=== PATIENT | female | born 1930 | race Caucasian/White ===

== ENCOUNTER 2019-04-06 04:55 | Observation (INO) ==
[2019-04-06] MEDS ORDERED: XYLOCAINE 1 % (PLAIN) ONE (06:00)
[2019-04-06] MEDS ORDERED: BACITRACIN ZINC ONE (07:15)
[2019-04-06] MEDS ORDERED: ZOFRAN INJ 4 MG VIAL ONE (07:15)
[2019-04-06] MEDS ORDERED: MORPHINE SULFATE INJ 2 MG INJ ONE (07:15)
[2019-04-06] MEDS ORDERED: MORPHINE SULFATE INJ 2 MG INJ IVP ONE ×2 (10:00→16:30)
[2019-04-06] MEDS ORDERED: TORADOL 15 MG VIAL IVP ONE (13:00)
[2019-04-06] MEDS ORDERED: COZAAR PO ONE (16:30)
[2019-04-06] MEDS ORDERED: DETROL LA 4 MG CAP EXT REL PO ONE (16:30)
[2019-04-06] MEDS ORDERED: PROTONIX TAB 40 MG PO ONE (16:30)
[2019-04-06] MEDS ORDERED: ARICEPT TAB 5 MG PO ONE (16:30)
[2019-04-06] MEDS ORDERED: LEVAQUIN PREMIX IV 500 MG IV ONE (16:30)
[2019-04-06] MEDS ORDERED: ATIVAN TAB 1 MG PO ONE (21:00)
[2019-04-06] MEDS ORDERED: ZOSYN VIAL 3.375 GRAMS IV ONE (21:30)
[2019-04-06] MEDS ORDERED: NS 100 ML IV + SPIKE MINIBAG IV ONE (21:30)
[2019-04-06] MEDS ORDERED: REGLAN TAB 10 MG PO ONE (22:00)
[2019-04-06] MEDS ORDERED: ZANTAC PO ONE (22:00)
[2019-04-06] MEDS ORDERED: LOPRESSOR TAB 50 MG PO ONE (22:00)
[2019-04-07] MEDS ORDERED: CARAFATE ORAL SUSP PO ONE ×2 (05:26→23:20)
[2019-04-07] MEDS ORDERED: TORADOL 15 MG VIAL IVP ONE (06:00)
[2019-04-07] MEDS ORDERED: FLONASE NASAL SPRAY ENOSTRIL ONE (09:40)
[2019-04-07] MEDS ORDERED: ARICEPT TAB 5 MG PO ONE (09:40)
[2019-04-07] MEDS ORDERED: ZANTAC PO ONE ×2 (09:40→23:18)
[2019-04-07] MEDS ORDERED: LOPRESSOR TAB 50 MG PO ONE ×2 (09:40→23:18)
[2019-04-07] MEDS ORDERED: ZOSYN VIAL 3.375 GRAMS IV ONE ×2 (09:40→23:18)
[2019-04-07] MEDS ORDERED: ELIQUIS PO ONE (09:40)
[2019-04-07] MEDS ORDERED: COZAAR PO ONE (09:40)
[2019-04-07] MEDS ORDERED: REGLAN TAB 10 MG PO ONE ×2 (09:40→23:18)
[2019-04-07] MEDS ORDERED: NS 1000 ML IV ONE (23:18)
[2019-04-07] MEDS ORDERED: ZINC SULFATE PO ONE (23:18)
[2019-04-07] MEDS ORDERED: PROTONIX TAB 40 MG PO ONE (23:18)
[2019-04-07] MEDS ORDERED: ATIVAN TAB 1 MG PO ONE (23:18)
[2019-04-07] MEDS ORDERED: FLOMAX PO ONE (23:18)
[2019-04-07] MEDS ORDERED: DETROL LA 4 MG CAP EXT REL PO ONE (23:18)
[2019-04-07] MEDS ORDERED: MORPHINE SULFATE INJ 2 MG INJ IVP ONE (23:28)
[2019-04-08] MEDS ORDERED: MORPHINE SULFATE INJ 2 MG INJ IVP PRN ×2 (05:51→06:16)
[2019-04-08] MEDS ORDERED: TORADOL 15 MG VIAL IVP PRN (06:15)
[2019-04-08] MEDS ORDERED: ATIVAN TAB 1 MG PO PRN (06:17)
[2019-04-08] MEDS ORDERED: CARAFATE ORAL SUSP PO PRN (06:18)
[2019-04-08] MEDS ORDERED: NS 1000 ML 1,000 ML IV SCH (07:00)
[2019-04-08] MEDS ORDERED: FLONASE NASAL SPRAY ENOSTRIL SCH (09:00)
[2019-04-08 09:37] LABS: CKMB % 1.6 % (<4)
[2019-04-08 09:39] LABS: CREATINE KINASE MB 5.6 ng/mL (0-4.0); TROPONIN I 0.07 ng/mL (0-1.5)
[2019-04-08 09:41] LABS: CARBON DIOXIDE 28.8 mmol/L (21-32); CHLORIDE 101 mmol/L (98-107); SODIUM 137 mmol/L (136-145)
[2019-04-08 09:42] LABS: ALANINE AMINOTRANSFERASE 17 Units/L (12-78); ALBUMIN 3.5 g/dL (3.4-5.0); ALKALINE PHOSPHATASE 66 Units/L (46-116); ASPARTATE AMINO TRANSFERASE 22 Units/L (15-37); BLOOD UREA NITROGEN 25 mg/dL (7-18); CALCIUM 8.6 mg/dL (8.5-10.1); COR NA(FOR HYPERGLY) 138 mmol/L (136-145); CREATINE KINASE 231 Units/L (26-192); CREATININE 1.46 mg/dL (0.55-1.02); TOTAL PROTEIN 6.2 g/dL (6.4-8.2); eGFR NON BLACK RACES 36 (>60)
[2019-04-08 09:43] LABS: CREATINE KINASE MB 4.7 ng/mL (0-4.0)
[2019-04-08 09:44] LABS: TROPONIN I 0.07 ng/mL (0-1.5)
[2019-04-08 09:46] LABS: BASOPHILS % (AUTO) 0.3 % (0.2-1.0); EOSINOPHILS % (AUTO) 2.3 % (0.9-2.9); HEMATOCRIT 36.8 % (36.0-47.0); HEMOGLOBIN 12.8 g/dL (12.0-16.0); LYMPHOCYTES # (AUTO) 1.3 X10^3/uL (1.3-2.9); LYMPHOCYTES % (AUTO) 12.4 % (21.0-51.0); MEAN CORPUSCULAR HEMOGLOBIN 31.1 pg (27.0-34.0); MEAN CORPUSCULAR HGB CONC 34.7 g/dL (33.0-35.0); MEAN CORPUSCULAR VOLUME 89.7 fL (80.0-100.0); MONOCYTES # (AUTO) 0.8 x10^3/uL (0.3-0.8); MONOCYTES % (AUTO) 7.7 % (0.0-13.0); NEUTROPHILS % (AUTO) 77.3 % (42.0-75.0); PLATELET COUNT 138 X10^3/uL (150.0-450.0); RED BLOOD COUNT 4.11 X10^6/uL (3.5-5.4); RED CELL DISTRIBUTION WIDTH 13.6 % (11.6-16.5); WHITE BLOOD COUNT 10.3 X10^3/uL (3.6-10.0)
[2019-04-08 09:47] LABS: EOSINOPHILS # (AUTO) 0.2 x10^3/uL (0.0-0.2)
[2019-04-08 09:51] LABS: ASPARTATE AMINO TRANSFERASE 22 Units/L (15-37); BLOOD UREA NITROGEN 22 mg/dL (7-18); CALCIUM 8.1 mg/dL (8.5-10.1); CARBON DIOXIDE 30.4 mmol/L (21-32); CHLORIDE 100 mmol/L (98-107); CREATININE 1.49 mg/dL (0.55-1.02); SODIUM 135 mmol/L (136-145); eGFR NON BLACK RACES 35 (>60)
[2019-04-08 09:52] LABS: ALANINE AMINOTRANSFERASE 13 Units/L (12-78); ALBUMIN 2.9 g/dL (3.4-5.0); ALKALINE PHOSPHATASE 54 Units/L (46-116); TOTAL PROTEIN 5.6 g/dL (6.4-8.2)
[2019-04-08 09:53] LABS: BASOPHILS % (AUTO) 0.6 % (0.2-1.0); EOSINOPHILS # (AUTO) 0.3 x10^3/uL (0.0-0.2); EOSINOPHILS % (AUTO) 3.8 % (0.9-2.9); HEMATOCRIT 31.9 % (36.0-47.0); LYMPHOCYTES # (AUTO) 1.5 X10^3/uL (1.3-2.9); LYMPHOCYTES % (AUTO) 20.4 % (21.0-51.0); MEAN CORPUSCULAR HEMOGLOBIN 31.1 pg (27.0-34.0); MEAN CORPUSCULAR HGB CONC 34.4 g/dL (33.0-35.0); MEAN CORPUSCULAR VOLUME 90.4 fL (80.0-100.0); MEAN PLATELET VOLUME 9.1 fL (7.4-11.0); MONOCYTES # (AUTO) 0.8 x10^3/uL (0.3-0.8); MONOCYTES % (AUTO) 11.2 % (0.0-13.0); NEUTROPHILS # (AUTO) 4.7 x10^3/uL (2.2-4.8); PLATELET COUNT 120 X10^3/uL (150.0-450.0); RED BLOOD COUNT 3.53 X10^6/uL (3.5-5.4); RED CELL DISTRIBUTION WIDTH 13.4 % (11.6-16.5); WHITE BLOOD COUNT 7.4 X10^3/uL (3.6-10.0)
[2019-04-08 10:07] LABS: CKMB % 1.5 % (<4); CREATINE KINASE MB 5.6 ng/mL (0-4.0); TROPONIN I 0.06 ng/mL (0-1.5)
[2019-04-08 10:09] LABS: CKMB % 1.2 % (<4); CREATINE KINASE MB 3.9 ng/mL (0-4.0); TROPONIN I 0.06 ng/mL (0-1.5)
[2019-04-08 10:09] LABS: CKMB % 1.2 % (<4); CREATINE KINASE MB 4.2 ng/mL (0-4.0)
[2019-04-08 12:36] LABS: TROPONIN I 0.05 ng/mL (0-1.5)
[2019-04-08] MEDS: REGLAN TAB 10 MG PO SCH ×2 (14:01→16:48)
[2019-04-08] MEDS: NS 1000 ML 1,000 ML IV SCH ×2 (14:01→21:36)
[2019-04-08] MEDS: PROTONIX TAB 40 MG PO SCH (14:01)
[2019-04-08] MEDS: ZOSYN VIAL 3.375 GRAMS 3.375 G in NS 100 ML IV + SPIKE MINIBAG* 100 ML IV SCH ×2 (14:01→21:35)
[2019-04-08] MEDS: ZINC SULFATE PO SCH (14:02)
[2019-04-08] MEDS: ZANTAC PO SCH ×2 (14:02→21:28)
[2019-04-08] MEDS: ELIQUIS PO SCH (14:02)
[2019-04-08] MEDS: ARICEPT TAB 5 MG PO SCH (14:02)
[2019-04-08] MEDS: TobraDEX OPHTH OINT AFFEYE SCH ×2 (14:02→21:49)
[2019-04-08] MEDS: DETROL LA 4 MG CAP EXT REL PO SCH (14:02)
[2019-04-08] MEDS: COZAAR PO SCH (14:02)
[2019-04-08] MEDS: LOPRESSOR TAB 50 MG PO SCH ×2 (14:02→21:29)
[2019-04-08] MEDS: LEVAQUIN PREMIX IV 500 MG 500 MG/100 ML BAG IV SCH (14:03)
[2019-04-08] MEDS ORDERED: MILK OF MAGNESIA PO PRN (14:16)
[2019-04-08] MEDS ORDERED: COLACE CAP 100 MG PO PRN (14:16)
[2019-04-08 17:26] LABS: BILIRUBIN,URINE NEGATIVE (NEGATIVE); BLOOD/HEMOGLOBIN,URINE NEGATIVE (NEGATIVE); GLUCOSE, URINE NEGATIVE (NEGATIVE); KETONES,URINE NEGATIVE (NEGATIVE); LEUKOCYTE ESTERASE ,URINE 1+ (NEGATIVE); NITRITES,URINE NEGATIVE (NEGATIVE); PROTEIN,URINE 1+ (NEGATIVE); UROBILINOGEN,URINE NORMAL (NORMAL)
[2019-04-08 17:29] LABS: APPEARANCE,URINE CLEAR (CLEAR); COLOR,URINE YELLOW (YELLOW)
[2019-04-08 17:46] LABS: BACTERIA,URINE NEGATIVE /HPF (NEGATIVE); RBC,URINE NONE SEEN /HPF (NONE SEEN); SQUAMOUS EPITHELIAL CELL,UR MODERATE /HPF (NEGATIVE)
[2019-04-08 17:47] LABS: AMORPHOUS SEDIMENT,UR TRACE /HPF (NEGATIVE)
[2019-04-08] MEDS ORDERED: DULCOLAX SUPPOSITORY 10 MG RECTAL ONE (20:07)
[2019-04-08] MEDS ORDERED: FLOMAX PO SCH (21:00)
[2019-04-08] MEDS ORDERED: ATIVAN TAB 1 MG PO SCH (21:00)
[2019-04-08] MEDS: COLACE CAP 100 MG PO SCH (21:27)
[2019-04-08] MEDS: MILK OF MAGNESIA PO SCH (21:29)
--- NOTE | 2019-04-09 00:19 | PCM.PROG ---
Progress Note - Progress Note for Day of Date of Exam: 04/07/19 - Subjective Subjective: the patient is an 88-year-old white female who was admitted secondary to a fall. Patient subsequently has bilateral nasal bone fractures. Patient has significant ecchymosis to her face. patient does state she can breath through her nose. Patient does complain of left shoulder pain. Patient denieyncopal episode. Does state that she tripped and fell. Does have safety alert necklace and bracelet at home. - Past Medical Family Social History Past Med/Fam/Surg Hx: No changes since H&P Allergies: Allergies aspirin Allergy (Verified 04/08/19 05:49) Sulfa (Sulfonamide Antibiotics) Allergy (Verified 04/08/19 05:50) - Review of Systems ROS: No change since H&P - Vital Signs and I&O's Vital Signs: Temperature 97.7 F Pulse Rate [Right] 66 Respiratory Rate 18 Blood Pressure [Right Arm] 136/79 Blood Pressure 106/59 O2 Sat by Pulse Oximetry 99 Intake and Output: Intake & Output 04/06/19 04/07/19 04/08/19 04/09/19 23:59 23:59 23:59 23:59 Intake Total 960 / 960 Output Total 300 / 300 Balance 660 / 660 - Physical Exam Oriented: Normal Eyes: Other Ear: Normal Nose: Other (edematous with laceration to bridge of nose. Sutures intact.) Throat: Normal Respiratory: Normal Cardiovascular: Normal : Normal Auscultation: Bowel Sounds: Normal Palpation: Normal Tenderness: Normal Skin: Wound (Nasal bridge), Bruising (Face) Musculoskeletal: Left, Shoulder, Tender Psychiatric: Normal Mood Description: Calm Affect: Normal Speech Pattern: Clear, Appropriate - Laboratory and Diagnostics Result Diagrams: 04/07/19 05:20 04/07/19 05:20 Labs: Laboratory WBC 7.4 X10^3/uL (3.6-10.0) 04/07/19 05:20 RBC 3.53 X10^6/uL (3.5-5.4) 04/07/19 05:20 Hgb 11.0 g/dL (12.0-16.0) L 04/07/19 05:20 Hct 31.9 % (36.0-47.0) L 04/07/19 05:20 MCV 90.4 fL (80.0-100.0) 04/07/19 05:20 MCH 31.1 pg (27.0-34.0) 04/07/19 05:20 MCHC 34.4 g/dL (33.0-35.0) 04/07/19 05:20 RDW 13.4 % (11.6-16.5) 04/07/19 05:20 Plt Count 120 X10^3/uL (150.0-450.0) L 04/07/19 05:20 MPV 9.1 fL (7.4-11.0) 04/07/19 05:20 Neut % (Auto) 64.0 % (42.0-75.0) 04/07/19 05:20 Lymph % (Auto) 20.4 % (21.0-51.0) L 04/07/19 05:20 [place] % (Auto) 11.2 % (0.0-13.0) 04/07/19 05:20 Eos % (Auto) 3.8 % (0.9-2.9) H 04/07/19 05:20 Baso % (Auto) 0.6 % (0.2-1.0) 04/07/19 05:20 Neut # (Auto) 4.7 x10^3/uL (2.2-4.8) 04/07/19 05:20 Lymph # (Auto) 1.5 X10^3/uL (1.3-2.9) 04/07/19 05:20 [place] # (Auto) 0.8 x10^3/uL (0.3-0.8) 04/07/19 05:20 Eos # (Auto) 0.3 x10^3/uL (0.0-0.2) H 04/07/19 05:20 Baso # (Auto) 0.0 X10^3/uL (0.0-0.1) 04/07/19 05:20 Absolute Nucleated RBC 0.0 /100WBC 04/07/19 05:20 INR Target Range - 04/06/19 05:30 INR 1.56 (0.8-1.3) H 04/06/19 05:30 APTT 34.9 SECONDS (22.9-36.5) 04/06/19 05:30 PTT Comment - 04/06/19 05:30 Sodium 135 mmol/L (136-145) L 04/07/19 05:20 Corrected Sodium TNP 04/07/19 05:20 Potassium 4.4 mmol/L (3.5-5.1) 04/07/19 05:20 Chloride 100 mmol/L (98-107) 04/07/19 05:20 Carbon Dioxide 30.4 mmol/L (21-32) 04/07/19 05:20 BUN 22 mg/dL (7-18) H 04/07/19 05:20 Creatinine 1.49 mg/dL (0.55-1.02) H 04/07/19 05:20 Est GFR (MDRD) Af Amer 43 (>60) L 04/07/19 05:20 Est GFR (MDRD) Non-Af 35 (>60) L 04/07/19 05:20 Glucose 97 mg/dL (65-99) 04/07/19 05:20 Calcium 8.1 mg/dL (8.5-10.1) L 04/07/19 05:20 Corrected Calcium 9.0 mg/dL (8.5-10.1) 04/07/19 05:20 Total Bilirubin 0.60 mg/dL (0.2-1.0) 04/07/19 05:20 AST 22 Units/L (15-37) 04/07/19 05:20 ALT 13 Units/L (12-78) 04/07/19 05:20 Alkaline Phosphatase 54 Units/L (46-116) 04/07/19 05:20 Creatine Kinase 329 Units/L (26-192) H 04/07/19 00:00 CK-MB (CK-2) 3.9 ng/mL (0-4.0) 04/07/19 00:00 CK/CKMB % Calc 1.2 % (<4) 04/07/19 00:00 Troponin I 0.06 ng/mL (0-1.5) 04/07/19 00:00 Total Protein 5.6 g/dL (6.4-8.2) L 04/07/19 05:20 Albumin 2.9 g/dL (3.4-5.0) L 04/07/19 05:20 Globulin 2.7 g/dL (2.5-4.5) 04/07/19 05:20 Albumin/Globulin Ratio 1.1 Ratio (1.1-2.1) 04/07/19 05:20 Specimen Type Clean catch urine 04/08/19 16:35 Urine Color Yellow (YELLOW) 04/08/19 16:35 Urine Appearance Clear (CLEAR) 04/08/19 16:35 Urine pH 6.0 (5.0 - 8.0) 04/08/19 16:35 Ur Specific [place] 1.015 (1.000-1.030) 04/08/19 16:35 Urine Protein 1+ (NEGATIVE) 04/08/19 16:35 Urine Glucose (UA) Negative (NEGATIVE) 04/08/19 16:35 Urine Ketones Negative (NEGATIVE) 04/08/19 16:35 Urine Occult Blood Negative (NEGATIVE) 04/08/19 16:35 Urine Nitrite Negative (NEGATIVE) 04/08/19 16:35 Urine Bilirubin Negative (NEGATIVE) 04/08/19 16:35 Urine Urobilinogen Normal (NORMAL) 04/08/19 16:35 Ur Leukocyte Esterase 1+ (NEGATIVE) 04/08/19 16:35 Urine RBC None seen /HPF (NONE SEEN) 04/08/19 16:35 Urine WBC 3-5 /HPF (NONE SEEN) 04/08/19 16:35 Ur Squamous Epith Cells Moderate /HPF (NEGATIVE) 04/08/19 16:35 Amorphous Sediment Trace /HPF (NEGATIVE) 04/08/19 16:35 Urine Bacteria Negative /HPF (NEGATIVE) 04/08/19 16:35 Ur Culture Indicated? No/not indicated 04/08/19 16:35 - Plan (1) Nasal bone fx-closed Status: Acute Plan: Monitor breathing. Humidify O2 as needed. (2) Fall Status: Acute Plan: Up with assistance (3) Current use of anticoagulant therapy Status: Acute Plan: Hold
--- NOTE | 2019-04-09 00:23 | PCM.PROG ---
Progress Note - Progress Note for Day of Date of Exam: 04/08/19 - Subjective Subjective: the patient is an 88-year-old white female who was admitted secondary to a fall. Patient subsequently has bilateral nasal bone fractures. Patient has significant ecchymosis to her face. patient does state she can breath through her nose. Patient does complain of left upper/mid humeral pain. Patient denies syncopal episode. Does state that she tripped and fell. Does have safety alert necklace and bracelet at home. patient complains of weakness. - Past Medical Family Social History Past Med/Fam/Surg Hx: No changes since H&P Allergies: Allergies aspirin Allergy (Verified 04/08/19 05:49) Sulfa (Sulfonamide Antibiotics) Allergy (Verified 04/08/19 05:50) - Review of Systems ROS: No change since H&P - Vital Signs and I&O's Vital Signs: Temperature 97.7 F Pulse Rate [Right] 66 Respiratory Rate 18 Blood Pressure [Right Arm] 136/79 Blood Pressure 106/59 O2 Sat by Pulse Oximetry 99 Intake and Output: Intake & Output 04/06/19 04/07/19 04/08/19 04/09/19 23:59 23:59 23:59 23:59 Intake Total 960 / 960 Output Total 300 / 300 Balance 660 / 660 - Physical Exam Oriented: Normal Eyes: Other Ear: Normal Nose: Other (edematous with laceration to bridge of nose. Sutures intact.) Throat: Normal Respiratory: Normal Cardiovascular: Normal : Normal Auscultation: Bowel Sounds: Normal Tenderness: Normal Skin: Wound (Nasal bridge), Bruising (Face) Musculoskeletal: Left, Shoulder, Tender Psychiatric: Normal Mood Description: Calm Affect: Normal Speech Pattern: Clear, Appropriate - Laboratory and Diagnostics Result Diagrams: 04/07/19 05:20 04/07/19 05:20 Labs: Laboratory WBC 7.4 X10^3/uL (3.6-10.0) 04/07/19 05:20 RBC 3.53 X10^6/uL (3.5-5.4) 04/07/19 05:20 Hgb 11.0 g/dL (12.0-16.0) L 04/07/19 05:20 Hct 31.9 % (36.0-47.0) L 04/07/19 05:20 MCV 90.4 fL (80.0-100.0) 04/07/19 05:20 MCH 31.1 pg (27.0-34.0) 04/07/19 05:20 MCHC 34.4 g/dL (33.0-35.0) 04/07/19 05:20 RDW 13.4 % (11.6-16.5) 04/07/19 05:20 Plt Count 120 X10^3/uL (150.0-450.0) L 04/07/19 05:20 MPV 9.1 fL (7.4-11.0) 04/07/19 05:20 Neut % (Auto) 64.0 % (42.0-75.0) 04/07/19 05:20 Lymph % (Auto) 20.4 % (21.0-51.0) L 04/07/19 05:20 [place] % (Auto) 11.2 % (0.0-13.0) 04/07/19 05:20 Eos % (Auto) 3.8 % (0.9-2.9) H 04/07/19 05:20 Baso % (Auto) 0.6 % (0.2-1.0) 04/07/19 05:20 Neut # (Auto) 4.7 x10^3/uL (2.2-4.8) 04/07/19 05:20 Lymph # (Auto) 1.5 X10^3/uL (1.3-2.9) 04/07/19 05:20 [place] # (Auto) 0.8 x10^3/uL (0.3-0.8) 04/07/19 05:20 Eos # (Auto) 0.3 x10^3/uL (0.0-0.2) H 04/07/19 05:20 Baso # (Auto) 0.0 X10^3/uL (0.0-0.1) 04/07/19 05:20 Absolute Nucleated RBC 0.0 /100WBC 04/07/19 05:20 INR Target Range - 04/06/19 05:30 INR 1.56 (0.8-1.3) H 04/06/19 05:30 APTT 34.9 SECONDS (22.9-36.5) 04/06/19 05:30 PTT Comment - 04/06/19 05:30 Sodium 135 mmol/L (136-145) L 04/07/19 05:20 Corrected Sodium TNP 04/07/19 05:20 Potassium 4.4 mmol/L (3.5-5.1) 04/07/19 05:20 Chloride 100 mmol/L (98-107) 04/07/19 05:20 Carbon Dioxide 30.4 mmol/L (21-32) 04/07/19 05:20 BUN 22 mg/dL (7-18) H 04/07/19 05:20 Creatinine 1.49 mg/dL (0.55-1.02) H 04/07/19 05:20 Est GFR (MDRD) Af Amer 43 (>60) L 04/07/19 05:20 Est GFR (MDRD) Non-Af 35 (>60) L 04/07/19 05:20 Glucose 97 mg/dL (65-99) 04/07/19 05:20 Calcium 8.1 mg/dL (8.5-10.1) L 04/07/19 05:20 Corrected Calcium 9.0 mg/dL (8.5-10.1) 04/07/19 05:20 Total Bilirubin 0.60 mg/dL (0.2-1.0) 04/07/19 05:20 AST 22 Units/L (15-37) 04/07/19 05:20 ALT 13 Units/L (12-78) 04/07/19 05:20 Alkaline Phosphatase 54 Units/L (46-116) 04/07/19 05:20 Creatine Kinase 329 Units/L (26-192) H 04/07/19 00:00 CK-MB (CK-2) 3.9 ng/mL (0-4.0) 04/07/19 00:00 CK/CKMB % Calc 1.2 % (<4) 04/07/19 00:00 Troponin I 0.06 ng/mL (0-1.5) 04/07/19 00:00 Total Protein 5.6 g/dL (6.4-8.2) L 04/07/19 05:20 Albumin 2.9 g/dL (3.4-5.0) L 04/07/19 05:20 Globulin 2.7 g/dL (2.5-4.5) 04/07/19 05:20 Albumin/Globulin Ratio 1.1 Ratio (1.1-2.1) 04/07/19 05:20 Specimen Type Clean catch urine 04/08/19 16:35 Urine Color Yellow (YELLOW) 04/08/19 16:35 Urine Appearance Clear (CLEAR) 04/08/19 16:35 Urine pH 6.0 (5.0 - 8.0) 04/08/19 16:35 Ur Specific [place] 1.015 (1.000-1.030) 04/08/19 16:35 Urine Protein 1+ (NEGATIVE) 04/08/19 16:35 Urine Glucose (UA) Negative (NEGATIVE) 04/08/19 16:35 Urine Ketones Negative (NEGATIVE) 04/08/19 16:35 Urine Occult Blood Negative (NEGATIVE) 04/08/19 16:35 Urine Nitrite Negative (NEGATIVE) 04/08/19 16:35 Urine Bilirubin Negative (NEGATIVE) 04/08/19 16:35 Urine Urobilinogen Normal (NORMAL) 04/08/19 16:35 Ur Leukocyte Esterase 1+ (NEGATIVE) 04/08/19 16:35 Urine RBC None seen /HPF (NONE SEEN) 04/08/19 16:35 Urine WBC 3-5 /HPF (NONE SEEN) 04/08/19 16:35 Ur Squamous Epith Cells Moderate /HPF (NEGATIVE) 04/08/19 16:35 Amorphous Sediment Trace /HPF (NEGATIVE) 04/08/19 16:35 Urine Bacteria Negative /HPF (NEGATIVE) 04/08/19 16:35 Ur Culture Indicated? No/not indicated 04/08/19 16:35 - Plan (1) Nasal bone fx-closed Status: Acute Plan: Monitor breathing. Humidify O2 as needed. (2) Fall Status: Acute Plan: Up with assistance, Home health nurses with PT (3) Current use of anticoagulant therapy Status: Acute Plan: Hold
[2019-04-09 05:18] LABS: BASOPHILS % (AUTO) 0.5 % (0.2-1.0); EOSINOPHILS # (AUTO) 0.3 x10^3/uL (0.0-0.2); EOSINOPHILS % (AUTO) 3.9 % (0.9-2.9); HEMATOCRIT 32.2 % (36.0-47.0); HEMOGLOBIN 11.3 g/dL (12.0-16.0); LYMPHOCYTES # (AUTO) 1.4 X10^3/uL (1.3-2.9); MEAN CORPUSCULAR HEMOGLOBIN 31.3 pg (27.0-34.0); MEAN CORPUSCULAR VOLUME 89.5 fL (80.0-100.0); MEAN PLATELET VOLUME 9.5 fL (7.4-11.0); MONOCYTES # (AUTO) 0.8 x10^3/uL (0.3-0.8); MONOCYTES % (AUTO) 9.3 % (0.0-13.0); NEUTROPHILS % (AUTO) 70.3 % (42.0-75.0); PLATELET COUNT 127 X10^3/uL (150.0-450.0); RED CELL DISTRIBUTION WIDTH 13.7 % (11.6-16.5); WHITE BLOOD COUNT 8.5 X10^3/uL (3.6-10.0)
[2019-04-09 05:26] LABS: CALCIUM 8.3 mg/dL (8.5-10.1); COR CA(FOR HYPOALB) 9.1 mg/dL (8.5-10.1); CREATININE 1.43 mg/dL (0.55-1.02); TOTAL PROTEIN 5.8 g/dL (6.4-8.2)
[2019-04-09] MEDS: REGLAN TAB 10 MG PO SCH (06:18)
[2019-04-09] MEDS: LEVAQUIN PREMIX IV 500 MG 500 MG/100 ML BAG IV SCH (09:30)
[2019-04-09] MEDS: COLACE CAP 100 MG PO SCH (09:32)
[2019-04-09] MEDS: ARICEPT TAB 5 MG PO SCH (09:33)
[2019-04-09] MEDS: DETROL LA 4 MG CAP EXT REL PO SCH (09:33)
[2019-04-09] MEDS: PROTONIX TAB 40 MG PO SCH (09:34)
[2019-04-09] MEDS: ZINC SULFATE PO SCH (09:34)
[2019-04-09] MEDS: ZANTAC PO SCH (09:35)
[2019-04-09] MEDS: LOPRESSOR TAB 50 MG PO SCH (09:36)
[2019-04-09] MEDS: COZAAR PO SCH (09:36)
[2019-04-09] MEDS: TobraDEX OPHTH OINT AFFEYE SCH (09:37)
[2019-04-09] MEDS: ELIQUIS PO SCH (09:37)
[2019-04-09] MEDS: MILK OF MAGNESIA PO SCH (09:37)
[2019-04-09] MEDS: ZOSYN VIAL 3.375 GRAMS 3.375 G in NS 100 ML IV + SPIKE MINIBAG* 100 ML IV SCH (10:50)
[2019-04-09 12:06] VITALS: BP 120/50
== END 2019-04-09 13:00 | disposition home health service (06) ==
LOC: ER 04:55 → MED/SURG 04:55
PROVIDERS: ADMIT Internal Medicine; ATTEND Internal Medicine
DX: R06.2 Wheezing; S02.2XXA Fracture of nasal bones, initial encounter for closed fracture; Z96.653 Presence of artificial knee joint, bilateral; S01.21XA Laceration without foreign body of nose, initial encounter; I48.91 Unspecified atrial fibrillation; S80.00XA Contusion of unspecified knee, initial encounter; W18.39XA Other fall on same level, initial encounter; R60.0 Localized edema; R94.31 Abnormal electrocardiogram [ECG] [EKG]; S09.8XXA Other specified injuries of head, initial encounter; Z79.01 Long term (current) use of anticoagulants; R53.1 Weakness; S61.215A Laceration without foreign body of left ring finger without damage to nail, initial encounter; Y92.091 Bathroom in other non-institutional residence as the place of occurrence of the external cause; S10.93XA Contusion of unspecified part of neck, initial encounter; S40.019A Contusion of unspecified shoulder, initial encounter
CPT/HCPCS: 36415; 70450; 70486; 71010; 71045; 72125; 73030; 73560; 80053; 81001; 82550; 82553; 84484; 85025; 85610; 85730; 93005; 94760; 96365; 96367; 96374; 96375; 97110; 97116; 97162; 97167; 97535; 99284; A4222; G0378; J1885; J1956; J2270; J2405; J2543; J7030; J7050

== ENCOUNTER 2020-05-10 11:24 | Observation (INO) ==
--- NOTE | 2020-05-10 11:39 | DR.GENAD ---
HPI Time Seen Time Seen by Provider: 05/10/20 11:37 HPI Comment HPI Comment: PATIENT IS OLD FEMALE IN ER VIA EMS FOR INCREASING WEAKNESS AND DIZZINESS NOTED TODAY. HISTORY OF VERTIGO. PATIENT HAVE IMBALANCE AND ATAXIA AND KNEES GIVE WAY WHEN SHE TRY TO GET UP. DENIES TRAUMA. DENIES CHEST PAIN OR HE ADACHE. HISTORY A FIB BUT DENIES PALPITATION. NO FEVER OR DYSURIA. NAUSEATED BUT NO VOMITING. PATIENT HAVING MELENA STOOL. Complaint/Symptoms Chief Complaint Doctors Comments: GENERALIZED WEAKNESS AND DIZZINESS NOTED TODAY. COVID-19 Coronavirus risk:travel/contact w/high risk person: No Has patient experienced Coronavirus symptoms: No Nurses notes reviewed Nurses Notes Review: Yes Source History Provided: Parent Mode of Arrival Mode of Arrival: EMS Timing Came on: Suddenly Duration Duration: Constant Duration: Hours Severity Severity: Moderate Modifying Factors Worsens:: MOVEMENT. Improves:: LYING STILL. Associated Signs and Symptoms Associated Signs and Symptoms: WEAKNESS, ATAXIA. Other History Other History: VERTIGO. PMH PMH Past Medical History: Anxiety, Arthritis, GERD and Hypertension Past Surgical History: Yes Surgical History: Other Social History Do you use any recreational Drugs:: No Travel Risk Coronavirus risk:travel/contact w/high risk person: No Has patient experienced Coronavirus symptoms: No ROS Review of Systems Constitutional: See HPI, Weakness and Fatigue; negative Fever and Loss of Appetite Eyes: No Symptoms Reported and See HPI; negative Blurred Vision and Diplopia ENTM: No Symptoms Reported and See HPI; negative Ear Pain, Nose Discharge, Nose Congestion and Throat Pain Respiratoy: See HPI, Productive Cough and Short of Breath (ON EXERTION.); negative Wheezing Cardiovascular: No Symptoms Reported and See HPI; negative Chest Pain Gastrointestinal/Abdominal: See HPI, Nausea and Other (MELENA STOOL.); negative Abdominal Pain, Diarrhea and Vomiting Genitourinary: See HPI and Bleeding (MELENA STOOL.); negative Dysuria and Hematuria Neurological: See HPI, Headache, Weakness and Dizziness Musculoskeletal: No Symptoms Reported, See HPI, Back Pain and Muscle Pain Integumentary: No Symptoms Reported and See HPI; negative Change in Color, Rash and Juandice Hematologic/Lymphatic: No Symptoms Reported, See HPI, Easy Bleeding and Easy Bruising Endocrine: No Symptoms Reported and See HPI; negative Increased Urine, Unexplained Weight Loss and Decreased Appetite Psychiatric: No Symptoms Reported and See HPI All Other Systems: Reviewed and Negative PE Vital Signs Vitals: Temperature 98.1 F Pulse Rate 73 Respiratory Rate 20 Blood Pressure [Right Arm] 132/58 Blood Pressure 142/63 O2 Sat by Pulse Oximetry 97 General Limitations: No Limitations General Appearance: Alert and In No Apparent Distress Head Head Exam: Normal Inspection and Atraumatic Eyes Eye exam: Normal Appearance and PERRL; negative Scleral Icterus and Conjunctival Injection ENT ENT Exam: Normal Exam, Normal Oropharynx, Normal External Ear Exam and TM's Normal Bilaterally External Ear Exam: Normal External Inspection; negative Mastoid Tenderness TM/Canal Exam: Bilateral: Normal Nose Exam: Normal Nose Exam Mouth Exam: Normal Inspection; negative Lip Swelling and Tongue Swelling Throat Exam: Normal Inspection; negative Tonsillar Erythema, Tonsillomegaly and Tonsillar Exudate Neck Neck Exam: Normal Inspection and Trachea Midline; negative Tenderness and Lymphadenopathy Chest Chest Inspection: Normal Inspection and Symmetric Chest Wall Rise; negative Tenderness Respiratory Respiratory Exam: Normal Lung Sounds Bilat; negative Accessory Muscle Use, Chest Wall Tenderness and Respiratory Distress Respiratory Exam: Bilateral: Rhonchi and Lower: Rhonchi Cardiovascular Cardiovascular Exam: Regular Rate, Normal Rhythm and Normal Heart Sounds; negative Systolic Murmur and Diastolic Murmur Abdominal Exam Abdominal Exam: Normal Inspection, Normal Bowel Sounds and Soft; negative Te nderness Extremities Extremities Exam: Normal Inspection and Normal Capillary Refill; negative Tenderness and Calf Tenderness Back Back Exam: Normal Inspection; negative Tenderness, (R) CVA Tenderness and (L) CVA Tenderness Neurologic Neurological Exam: Alert, Oriented X3 and CN II-XII Intact; negative Motor Sensory Deficit Psychiatric Psychiatric Exam: Normal Affect and Normal Mood Skin Skin Exam: Warm, Dry, Intact and Normal Color MDM Differential Diagnosis Differential Diagnosis: DIZZINESS, CVA, VERTIGO, SINUSITIS, UTI, PNEUMONIA, NEAR SYNCOPE. COURSE Treatment Treatment: SEE ORDERS. PROTONIX 40 MG IV AND MECLIZINE 25 MG PO IN ER. Consultation Consultation Comments: DISCUSSED PATIENT WITH DR. JOHNSON, HE WILL ADMIT PATIENT. Education/Counseling Education/Counseling: Patient Educated On: Diagnosis and Needs for Follow Up ROR Labs Reviewed Laboratory Results Reviewed?: Yes Result Diagrams: 05/13/20 05:15 05/13/20 05:15 Laboratory: WBC 5.9 X10^3/uL (3.6-10.0) 05/10/20 12:00 RBC 4.91 X10^6/uL (3.5-5.4) 05/10/20 12:00 Hgb 13.8 g/dL (12.0-16.0) 05/10/20 12:00 Hct 41.0 % (36.0-47.0) 05/10/20 12:00 MCV 83.4 fL (80.0-100.0) 05/10/20 12:00 MCH 28.2 pg (27.0-34.0) 05/10/20 12:00 MCHC 33.8 g/dL (33.0-35.0) 05/10/20 12:00 RDW 13.4 % (11.6-16.5) 05/10/20 12:00 Plt Count 167 X10^3/uL (150.0-450.0) 05/10/20 12:00 MPV 7.6 fL (7.4-11.0) 05/10/20 12:00 Neut % (Auto) 49.8 % (42.0-75.0) 05/10/20 12:00 Lymph % (Auto) 36.8 % (21.0-51.0) 05/10/20 12:00 [place] % (Auto) 7.9 % (0.0-13.0) 05/10/20 12:00 Eos % (Auto) 4.7 % (0.9-2.9) H 05/10/20 12:00 Baso % (Auto) 0.8 % (0.2-1.0) 05/10/20 12:00 Neut # (Auto) 2.9 x10^3/uL (2.2-4.8) 05/10/20 12:00 Lymph # (Auto) 2.2 X10^3/uL (1.3-2.9) 05/10/20 12:00 [place] # (Auto) 0.5 x10^3/uL (0.3-0.8) 05/10/20 12:00 Eos # (Auto) 0.3 x10^3/uL (0.0-0.2) H 05/10/20 12:00 Baso # (Auto) 0.0 X10^3/uL (0.0-0.1) 05/10/20 12:00 Absolute Nucleated RBC 0.1 /100WBC 05/10/20 12:00 Sodium 133 mmol/L (136-145) L 05/10/20 12:00 Corrected Sodium TNP 05/10/20 12:00 Potassium 4.4 mmol/L (3.5-5.1) 05/10/20 12:00 Chloride 98 mmol/L (98-107) 05/10/20 12:00 Carbon Dioxide 31.2 mmol/L (21-32) 05/10/20 12:00 BUN 13 mg/dL (7-18) 05/10/20 12:00 Creatinine 1.58 mg/dL (0.55-1.02) H 05/10/20 12:00 Est GFR (MDRD) Af Amer 40 (>60) L 05/10/20 12:00 Est GFR (MDRD) Non-Af 33 (>60) L 05/10/20 12:00 Glucose 110 mg/dL (65-99) H 05/10/20 12:00 Calcium 9.1 mg/dL (8.5-10.1) 05/10/20 12:00 Corrected Calcium TNP 05/10/20 12:00 Total Bilirubin 0.30 mg/dL (0.2-1.0) 05/10/20 12:00 AST 21 Units/L (15-37) 05/10/20 12:00 ALT 20 Units/L (12-78) 05/10/20 12:00 Alkaline Phosphatase 87 Units/L (46-116) 05/10/20 12:00 Creatine Kinase 23 Units/L (26-192) L 05/10/20 12:00 CK-MB (CK-2) < 1.0 ng/mL (0-4.0) 05/10/20 12:00 CK/CKMB % Calc 4.4 % (<4) 05/10/20 12:00 Troponin I 0.06 ng/mL (0-1.5) 05/10/20 12:00 Total Protein 6.6 g/dL (6.4-8.2) 05/10/20 12:00 Albumin 3.7 g/dL (3.4-5.0) 05/10/20 12:00 Globulin 2.9 g/dL (2.5-4.5) 05/10/20 12:00 Albumin/Globulin Ratio 1.3 Ratio (1.1-2.1) 05/10/20 12:00 Specimen Type Catherized urine 05/10/20 12:50 Urine Color Yellow (YELLOW) 05/10/20 12:50 Urine Appearance Clear (CLEAR) 05/10/20 12:50 Urine pH 7.0 (5.0 - 8.0) 05/10/20 12:50 Ur Specific [place] 1.010 (1.000-1.030) 05/10/20 12:50 Urine Protein Negative (NEGATIVE) 05/10/20 12:50 Urine Glucose (UA) Negative (NEGATIVE) 05/10/20 12:50 Urine Ketones Negative (NEGATIVE) 05/10/20 12:50 Urine Occult Blood 1+ (NEGATIVE) 05/10/20 12:50 Urine Nitrite Negative (NEGATIVE) 05/10/20 12:50 Urine Bilirubin Negative (NEGATIVE) 05/10/20 12:50 Urine Urobilinogen Normal (NORMAL) 05/10/20 12:50 Ur Leukocyte Esterase Negative (NEGATIVE) 05/10/20 12:50 Urine RBC 3-5 /HPF (0-3) A 05/10/20 12:50 Urine WBC 0-2 /HPF (0-5) 05/10/20 12:50 Ur Squamous Epith Cells Few /HPF (NEGATIVE) 05/10/20 12:50 Urine Bacteria Trace /HPF (NEGATIVE) 05/10/20 12:50 Ur Culture Indicated? No/not indicated 05/10/20 12:50 Stool Description Fob tube 05/10/20 12:50 Stl Occult Blood (IFOB) Positive (NEGATIVE) A 05/10/20 12:50 XRAY XRAY Interpreted by: Radiologist (REPORT NOTED AND DISCUSSED WITH PATIENT.) and Self EKG Rate: 69 [place]: Normal Rhythm: NSR Block: None Hypertrophy: None (LOW VOLTAGE.) ST: Normal Opioid Opioid Risk Tool Age (Michael box if 16-45): No History of Preadolescent Sexual Abuse: No Total: 0 Total Score Risk Category: Low Risk Copyright: Heath COELLO predicting aberrant behaviors Diagnosis Discharge Problem: Acute GI bleeding, Weakness generalized, Vertigo, Dizziness Instructions Forms: Precautions for COVID19 Patient Portal Social Distancing
[2020-05-10 11:52] VITALS: BMI 30.7
[2020-05-10 12:05] LABS: BASOPHILS % (AUTO) 0.8 % (0.2-1.0); EOSINOPHILS # (AUTO) 0.3 x10^3/uL (0.0-0.2); EOSINOPHILS % (AUTO) 4.7 % (0.9-2.9); HEMOGLOBIN 13.8 g/dL (12.0-16.0); LYMPHOCYTES # (AUTO) 2.2 X10^3/uL (1.3-2.9); LYMPHOCYTES % (AUTO) 36.8 % (21.0-51.0); MEAN CORPUSCULAR HEMOGLOBIN 28.2 pg (27.0-34.0); MEAN CORPUSCULAR HGB CONC 33.8 g/dL (33.0-35.0); MEAN CORPUSCULAR VOLUME 83.4 fL (80.0-100.0); MEAN PLATELET VOLUME 7.6 fL (7.4-11.0); MONOCYTES # (AUTO) 0.5 x10^3/uL (0.3-0.8); MONOCYTES % (AUTO) 7.9 % (0.0-13.0); NEUTROPHILS # (AUTO) 2.9 x10^3/uL (2.2-4.8); NEUTROPHILS % (AUTO) 49.8 % (42.0-75.0); PLATELET COUNT 167 X10^3/uL (150.0-450.0); RED BLOOD COUNT 4.91 X10^6/uL (3.5-5.4); RED CELL DISTRIBUTION WIDTH 13.4 % (11.6-16.5); WHITE BLOOD COUNT 5.9 X10^3/uL (3.6-10.0)
[2020-05-10 12:22] LABS: BLOOD UREA NITROGEN 13 mg/dL (7-18); CALCIUM 9.1 mg/dL (8.5-10.1); CARBON DIOXIDE 31.2 mmol/L (21-32); CHLORIDE 98 mmol/L (98-107); CREATININE 1.58 mg/dL (0.55-1.02); SODIUM 133 mmol/L (136-145); TROPONIN I 0.06 ng/mL (0-1.5); eGFR NON BLACK RACES 33 (>60)
[2020-05-10 12:27] LABS: ALANINE AMINOTRANSFERASE 20 Units/L (12-78); ALBUMIN 3.7 g/dL (3.4-5.0); ALKALINE PHOSPHATASE 87 Units/L (46-116); ASPARTATE AMINO TRANSFERASE 21 Units/L (15-37); CKMB % 4.4 % (<4); CREATINE KINASE 23 Units/L (26-192); CREATINE KINASE MB < 1.0 ng/mL (0-4.0); TOTAL PROTEIN 6.6 g/dL (6.4-8.2)
--- NOTE | 2020-05-10 12:27 | RAD ---
CHEST, 1 VIEWHistory: SOB/WEAKNESSComparison: 04/06/2019Findings: Cardiac silhouette is normal in size for AP technique. No acute alveolar infiltrate or significant effusion is identified. No pneumothorax.Impression: No acute cardiopulmonary abnormality.Electronically signed by: TABITHA SMITH (May 10, 2020 12:26:56)
--- NOTE | 2020-05-10 12:45 | CT ---
HISTORYDIZZINESS/WEAKNESSSTUDYBRAIN W/O CONCOMPARISONNone.TECHNIQUEMultiple axial images of the head were performed from the skullbase to the vertex using standard departmental protocol. Sagittal and coronal reformatted images were performed. Dose reduction techniques including Automated Exposure Control (AEC) and adjustment of mA and kV were utilized.FINDINGSThe lateral ventricles and basilar cisterns are patent. No parenchymal mass or hematoma. No extra-axial collection. Moderate low-attenuation change in the supratentorial subcortical and deep white matter. The globes are intact. The paranasal sinuses and mastoid air cells are clear. The calvarium is intact. Small subcentimeter osteoma off of the left frontal bone.IMPRESSIONNo acute intracranial abnormality. Moderate chronic small vessel disease.Electronically signed by: Shashi Hernandes (May 10, 2020 12:44:45)
[2020-05-10 13:06] LABS: BILIRUBIN,URINE NEGATIVE (NEGATIVE); BLOOD/HEMOGLOBIN,URINE 1+ (NEGATIVE); GLUCOSE, URINE NEGATIVE (NEGATIVE); KETONES,URINE NEGATIVE (NEGATIVE); LEUKOCYTE ESTERASE ,URINE NEGATIVE (NEGATIVE); NITRITES,URINE NEGATIVE (NEGATIVE); PROTEIN,URINE NEGATIVE (NEGATIVE); UROBILINOGEN,URINE NORMAL (NORMAL)
[2020-05-10 13:13] LABS: APPEARANCE,URINE CLEAR (CLEAR); BACTERIA,URINE TRACE /HPF (NEGATIVE); COLOR,URINE YELLOW (YELLOW); SQUAMOUS EPITHELIAL CELL,UR FEW /HPF (NEGATIVE)
[2020-05-10] MEDS ORDERED: PROTONIX INJ 40 MG VIAL IVP ONE (14:05)
[2020-05-10] MEDS ORDERED: PROTONIX INJ 40 MG VIAL ONE (14:11)
[2020-05-10] MEDS ORDERED: ULTRAM PO PRN (15:32)
[2020-05-10] MEDS ORDERED: ATARAX TAB 25 MG PO PRN (15:32)
[2020-05-10] MEDS: NS 1000 ML 1,000 ML IV SCH (15:45)
[2020-05-10] MEDS: PATIENT'S HOME MEDICATION (Mirabegron [Myrbetriq] 25 MG) PO SCH (15:54)
[2020-05-10] MEDS: KLONOPIN TAB 1 MG PO PRN (20:10)
[2020-05-10] MEDS: FLOMAX PO SCH (20:22)
[2020-05-10] MEDS: LOPRESSOR TAB 50 MG PO SCH (20:23)
[2020-05-10] MEDS: PROTONIX INJ 40 MG VIAL IVP SCH (20:23)
[2020-05-10] MEDS: ANTIVERT TAB 25 MG PO PRN (22:00)
[2020-05-10 22:58] LABS: CKMB % 4.8 % (<4); CREATINE KINASE 21 Units/L (26-192); CREATINE KINASE MB < 1.0 ng/mL (0-4.0); TROPONIN I 0.05 ng/mL (0-1.5)
[2020-05-11] MEDS: NS 1000 ML 1,000 ML IV SCH (05:17)
[2020-05-11 05:55] LABS: BASOPHILS % (AUTO) 0.6 % (0.2-1.0); EOSINOPHILS # (AUTO) 0.3 x10^3/uL (0.0-0.2); HEMATOCRIT 37.6 % (36.0-47.0); HEMOGLOBIN 12.8 g/dL (12.0-16.0); LYMPHOCYTES # (AUTO) 2.4 X10^3/uL (1.3-2.9); LYMPHOCYTES % (AUTO) 37.3 % (21.0-51.0); MEAN CORPUSCULAR HEMOGLOBIN 28.2 pg (27.0-34.0); MEAN PLATELET VOLUME 7.8 fL (7.4-11.0); MONOCYTES # (AUTO) 0.5 x10^3/uL (0.3-0.8); MONOCYTES % (AUTO) 8.2 % (0.0-13.0); NEUTROPHILS # (AUTO) 3.2 x10^3/uL (2.2-4.8); NEUTROPHILS % (AUTO) 49.9 % (42.0-75.0); PLATELET COUNT 157 X10^3/uL (150.0-450.0); RED BLOOD COUNT 4.53 X10^6/uL (3.5-5.4); WHITE BLOOD COUNT 6.4 X10^3/uL (3.6-10.0)
[2020-05-11 06:16] LABS: ALANINE AMINOTRANSFERASE 17 Units/L (12-78); ALBUMIN 3.2 g/dL (3.4-5.0); ALKALINE PHOSPHATASE 87 Units/L (46-116); ASPARTATE AMINO TRANSFERASE 22 Units/L (15-37); BLOOD UREA NITROGEN 16 mg/dL (7-18); CALCIUM 8.7 mg/dL (8.5-10.1); CARBON DIOXIDE 31.3 mmol/L (21-32); CHLORIDE 101 mmol/L (98-107); CHOL/HDL RATIO 3.1 (0.0-5.0); CHOLESTEROL 148 mg/dL (0-200); CKMB % 5.3 % (<4); COR CA(FOR HYPOALB) 9.3 mg/dL (8.5-10.1); COR NA(FOR HYPERGLY) 137 mmol/L (136-145); CREATINE KINASE 19 Units/L (26-192); CREATINE KINASE MB < 1.0 ng/mL (0-4.0); CREATININE 1.51 mg/dL (0.55-1.02); HDL CHOLESTEROL 47 mg/dL (40-60); MAGNESIUM 1.7 mg/dL (1.7-2.9); SODIUM 136 mmol/L (136-145); TRIGLYCERIDES 163 mg/dL (0-150); TROPONIN I 0.05 ng/mL (0-1.5); eGFR NON BLACK RACES 35 (>60)
[2020-05-11] MEDS: ALDACTONE TAB 25 MG PO SCH (09:02)
[2020-05-11] MEDS: DETROL LA 4 MG CAP EXT REL PO SCH (09:02)
[2020-05-11] MEDS: ARICEPT TAB 5 MG PO SCH (09:02)
[2020-05-11] MEDS: LOPRESSOR TAB 50 MG PO SCH ×2 (09:02→20:30)
[2020-05-11] MEDS: PROTONIX INJ 40 MG VIAL IVP SCH ×2 (09:03→20:30)
[2020-05-11] MEDS: MAG-OX TAB PO SCH (09:03)
[2020-05-11] MEDS: MICRO K EXTEN CAP 10 MEQ PO SCH (09:03)
[2020-05-11] MEDS: ANTIVERT TAB 25 MG PO PRN (09:22)
[2020-05-11 09:42] LABS: FREE T4 (FREE THYROXINE) 1.02 ng/dL (0.76-1.46); TSH (3RD GENERATION) 1.651 uIU/mL (0.358-3.74)
--- NOTE | 2020-05-11 11:17 | VAS ---
[id number] female with dizziness and visual changes. Evaluate for possible carotid artery stenosis.STUDYCarotid Doppler examCOMPARISONNoneTECHNIQUEMultiple khan scale and color flow Doppler images of the right and left carotid arterial system were obtained. The vertebral arterial system was evaluated as well.FINDINGSMild degree of plaque is noted in both carotid systems.On the right, peak systolic velocities in centimeter/sec of the right internal and common carotid arteries measure 106 and 89 respectively. The greatest ICA/CCA ratio on the right is 1.19.On the left, peak systolic velocities in centimeter/sec of the left internal and common carotid arteries measure 71 and 79 respectively. The greatest ICA/CCA ratio on the left is 0.90.Antegrade flow is documented in patent vertebral arteries bilaterally.IMPRESSIONNo hemodynamically significant carotid stenosis seen on either sideElectronically signed by: OTTO JEAN BAPTISTE (May 11, 2020 11:16:02)
[2020-05-11] MEDS: CARAFATE ORAL SUSP PO SCH ×3 (12:00→20:29)
[2020-05-11 12:25] LABS: BASOPHILS # (AUTO) 0.1 X10^3/uL (0.0-0.1); EOSINOPHILS # (AUTO) 0.3 x10^3/uL (0.0-0.2); EOSINOPHILS % (AUTO) 4.6 % (0.9-2.9); HEMOGLOBIN 12.9 g/dL (12.0-16.0); LYMPHOCYTES # (AUTO) 1.9 X10^3/uL (1.3-2.9); LYMPHOCYTES % (AUTO) 29.1 % (21.0-51.0); MEAN CORPUSCULAR HEMOGLOBIN 28.3 pg (27.0-34.0); MEAN CORPUSCULAR HGB CONC 33.9 g/dL (33.0-35.0); MEAN CORPUSCULAR VOLUME 83.5 fL (80.0-100.0); MEAN PLATELET VOLUME 8.1 fL (7.4-11.0); MONOCYTES # (AUTO) 0.5 x10^3/uL (0.3-0.8); MONOCYTES % (AUTO) 7.4 % (0.0-13.0); NEUTROPHILS # (AUTO) 3.8 x10^3/uL (2.2-4.8); NEUTROPHILS % (AUTO) 57.9 % (42.0-75.0); PLATELET COUNT 162 X10^3/uL (150.0-450.0); RED BLOOD COUNT 4.55 X10^6/uL (3.5-5.4); RED CELL DISTRIBUTION WIDTH 13.7 % (11.6-16.5); WHITE BLOOD COUNT 6.5 X10^3/uL (3.6-10.0)
[2020-05-11 12:57] LABS: PLATELET MORPHOLOGY COMMENT NORMAL (NORMAL)
[2020-05-11] MEDS: ANTIVERT TAB 25 MG PO SCH ×2 (14:00→21:08)
[2020-05-11] MEDS: PATIENT'S HOME MEDICATION (Mirabegron [Myrbetriq] 25 MG) PO SCH (18:19)
[2020-05-11] MEDS: FLOMAX PO SCH (20:29)
[2020-05-11] MEDS: KLONOPIN TAB 1 MG PO PRN (21:08)
[2020-05-12] MEDS: NS 1000 ML 1,000 ML IV SCH ×3 (01:39→20:22)
[2020-05-12 06:09] LABS: BASOPHILS % (AUTO) 0.5 % (0.2-1.0); EOSINOPHILS # (AUTO) 0.3 x10^3/uL (0.0-0.2); EOSINOPHILS % (AUTO) 4.7 % (0.9-2.9); HEMATOCRIT 37.6 % (36.0-47.0); HEMOGLOBIN 12.6 g/dL (12.0-16.0); LYMPHOCYTES # (AUTO) 2.5 X10^3/uL (1.3-2.9); LYMPHOCYTES % (AUTO) 40.7 % (21.0-51.0); MEAN CORPUSCULAR HEMOGLOBIN 28.2 pg (27.0-34.0); MEAN CORPUSCULAR HGB CONC 33.7 g/dL (33.0-35.0); MEAN CORPUSCULAR VOLUME 83.8 fL (80.0-100.0); MEAN PLATELET VOLUME 7.7 fL (7.4-11.0); MONOCYTES # (AUTO) 0.5 x10^3/uL (0.3-0.8); MONOCYTES % (AUTO) 8.1 % (0.0-13.0); NEUTROPHILS # (AUTO) 2.8 x10^3/uL (2.2-4.8); PLATELET COUNT 149 X10^3/uL (150.0-450.0); RED BLOOD COUNT 4.48 X10^6/uL (3.5-5.4); RED CELL DISTRIBUTION WIDTH 13.8 % (11.6-16.5)
[2020-05-12] MEDS: ANTIVERT TAB 25 MG PO SCH ×3 (06:17→21:50)
[2020-05-12] MEDS: CARAFATE ORAL SUSP PO SCH ×4 (06:18→20:20)
[2020-05-12 06:24] LABS: CALCIUM 8.5 mg/dL (8.5-10.1); CARBON DIOXIDE 29.6 mmol/L (21-32); COR CA(FOR HYPOALB) 9.3 mg/dL (8.5-10.1); CREATININE 1.35 mg/dL (0.55-1.02); TOTAL PROTEIN 5.8 g/dL (6.4-8.2)
[2020-05-12] MEDS: ALDACTONE TAB 25 MG PO SCH (09:53)
[2020-05-12] MEDS: ARICEPT TAB 5 MG PO SCH (09:54)
[2020-05-12] MEDS: DETROL LA 4 MG CAP EXT REL PO SCH (09:55)
[2020-05-12] MEDS: MAG-OX TAB PO SCH (09:56)
[2020-05-12] MEDS: MICRO K EXTEN CAP 10 MEQ PO SCH (09:56)
[2020-05-12] MEDS: LOPRESSOR TAB 50 MG PO SCH ×2 (09:56→20:21)
[2020-05-12] MEDS: PROTONIX INJ 40 MG VIAL IVP SCH ×2 (09:57→20:20)
[2020-05-12] MEDS ORDERED: NS 100 ML IV 100 ML with VENOFER 400 MG IV NR ×2 (11:00)
--- NOTE | 2020-05-12 12:31 | DR.H&P ---
H&P - History & Physical for Day of: H&P Date: 05/10/20 - Chief Complaint Chief Complaint: DIZZINESS, WEAKNESS - History of Present Illness History of Present Illness: PT IS 89 WF ER ADMISSION CO INTRACTABLE DIZZINESS AND LOWER LEG WEAKNESS. PT REPORTS BLACK TARRY STOOL AND INCREASED "ESOPHAGUS PROBLEMS". PT HAD POSITIVE OCCULT STOOL IN ER. PT CT HEAD WITHOUT ACUTE FINDINGS. PT HAD PMH OF HTN, OA,GERD. PT ADMITTED FOR TREATMENT OF ACUTE ILLNESS - Past Medical History Past Medical History: Hypertension, Anxiety, GERD, Arthritis - Past Surgical History Surgical History: Cholecystectomy, Joint Replacement, Other - Family History Family Medical History: Cancer - Social History Does patient currently use any type of tobacco product: No Have you used tobacco products in the last 12 months: No Type of Tobacco Use: Cigarettes How many years tobacco product used: 30 Does any household member use tobacco: No Alcohol Use: None Drug Use: None - Medications Home Medications: aspirin Allergy (Verified 09/12/19 11:30) Sulfa (Sulfonamide Antibiotics) Allergy (Verified 09/12/19 11:30) CONTINUE taking the following medications celecoxib 100 mg PO BID 05/10/20 [History] clonazepam 1 mg PO Q8H PRN 05/10/20 [History] famotidine 20 mg PO BID 05/10/20 [History] hydroxyzine HCl 25 mg PO QID PRN 05/10/20 [History] potassium chloride 10 meq PO DAILY 05/10/20 [History] tramadol 50 mg PO TID PRN 05/10/20 [History] - Review of Systems Constitutional: Weakness Eyes: No Symptoms Reported ENT: No Symptoms Reported Cardiovascular: Edema. denies: Chest Pain Gastrointestinal: Nausea, Melena Genitourinary: No Symptoms Reported Musculoskeletal: Back Pain Skin: No Symptoms Reported Neurological: Weakness, Other (DIZZINESS) - Physical Exam Vital Signs: Temperature 98.1 F Pulse Rate [Right Brachial] 76 Pulse Rate 73 Respiratory Rate 20 Blood Pressure [Right Arm] 117/58 Blood Pressure 133/62 O2 Sat by Pulse Oximetry 97 Oriented: Normal Eyes: Normal Ear: Normal Nose: Normal Throat: Normal Respiratory: RLL Diminished, LLL Diminished Cardiovascular: Normal, Edema (TRACE BILATERAL ANKLE EDEMA) : Normal Auscultation: Bowel Sounds: Normal Palpation: Normal Tenderness: Normal Skin: Decreased Turgur Musculoskeletal: Back:Thoracic, Back:Lumbar Psychiatric: Anxiety Affect: Anxious Speech Pattern: Clear, Appropriate - Assessment/Plan (1) Acute GI bleeding Status: Acute Plan: ADMIT, REPEAT OCCULT STOOL. ANEMIA PANEL, PROTONIX IV BID. HOLD BLOOD THINNERS, IV HYDRATION. STRICT I&OS, VERIFY HOME MEDICATION. CE AND EKG, CXR ON ADMISSION (2) UTI (urinary tract infection) Qualifiers: Urinary tract infection type: acute cystitis Hematuria presence: with hematuria Qualified Code(s): N30.01 - Acute cystitis with hematuria Status: Acute (3) Dizziness Status: Acute (4) Weakness generalized Status: Acute (5) Current use of anticoagulant therapy Status: Acute - Allergies Allergies/Adverse Reactions: Allergies Allergy/AdvReac Type Severity Reaction Status Date / Time aspirin Allergy Verified 09/12/19 11:30 Sulfa (Sulfonamide Allergy Verified 09/12/19 11:30 Antibiotics)
--- NOTE | 2020-05-12 12:35 | PCM.PROG ---
Progress Note - Progress Note for Day of Date of Exam: 05/11/20 - Subjective Subjective: PT IS 89WF ER ADMISSION WITH POSITIVE OCCULT STOOL WITH CO INTRACTABLE DIZZINESS. PT HGB STABLE THIS AM, CURRENTLY ON PPI THERAPY. PT DENIES ANY RECENT GI SCOPE. PT STATES DIZZINESS WORSE WITH MOVEMENT. PT STARTED ON MECLIZINE TID, FE REPLACEMENT. CAROTID ARTERY US ORDERED. HOME MEDICATIONS R ESUMED. PT CONSULT. - Past Medical Family Social History Past Med/Fam/Surg Hx: No changes since H&P Allergies: Allergies aspirin Allergy (Verified 09/12/19 11:30) Sulfa (Sulfonamide Antibiotics) Allergy (Verified 09/12/19 11:30) - Review of Systems ROS: No change since H&P - Vital Signs and I&O's Vital Signs: Temperature 98.1 F Pulse Rate [Right Brachial] 76 Pulse Rate 73 Respiratory Rate 20 Blood Pressure [Right Arm] 117/58 Blood Pressure 133/62 O2 Sat by Pulse Oximetry 97 Intake and Output: Intake & Output 05/10/20 05/11/20 05/12/20 05/13/20 11:59 11:59 11:59 11:59 Intake Total 620 / 620 1648 / 1648 Output Total 100 / 100 Balance 620 / 620 1548 / 1548 - Physical Exam Oriented: Normal Eyes: Normal Ear: Normal Nose: Normal Throat: Normal Cardiovascular: Normal, Edema (TRACE BILATERAL ANKLE EDEMA) : Normal Auscultation: Bowel Sounds: Normal Tenderness: Normal Skin: Decreased Turgur Musculoskeletal: Back:Thoracic, Back:Lumbar Psychiatric: Anxiety Affect: Anxious Speech Pattern: Clear, Appropriate - Laboratory and Diagnostics Result Diagrams: 05/12/20 05:39 05/12/20 05:39 Labs: Laboratory WBC 6.0 X10^3/uL (3.6-10.0) 05/12/20 05:39 RBC 4.48 X10^6/uL (3.5-5.4) 05/12/20 05:39 Hgb 12.6 g/dL (12.0-16.0) 05/12/20 05:39 Hct 37.6 % (36.0-47.0) 05/12/20 05:39 MCV 83.8 fL (80.0-100.0) 05/12/20 05:39 MCH 28.2 pg (27.0-34.0) 05/12/20 05:39 MCHC 33.7 g/dL (33.0-35.0) 05/12/20 05:39 RDW 13.8 % (11.6-16.5) 05/12/20 05:39 Plt Count 149 X10^3/uL (150.0-450.0) L 05/12/20 05:39 Plt Count Comment Adequate (ADEQUATE) 05/11/20 12:08 MPV 7.7 fL (7.4-11.0) 05/12/20 05:39 Neut % (Auto) 46.0 % (42.0-75.0) 05/12/20 05:39 Lymph % (Auto) 40.7 % (21.0-51.0) 05/12/20 05:39 [place] % (Auto) 8.1 % (0.0-13.0) 05/12/20 05:39 Eos % (Auto) 4.7 % (0.9-2.9) H 05/12/20 05:39 Baso % (Auto) 0.5 % (0.2-1.0) 05/12/20 05:39 Neut # (Auto) 2.8 x10^3/uL (2.2-4.8) 05/12/20 05:39 Lymph # (Auto) 2.5 X10^3/uL (1.3-2.9) 05/12/20 05:39 [place] # (Auto) 0.5 x10^3/uL (0.3-0.8) 05/12/20 05:39 Eos # (Auto) 0.3 x10^3/uL (0.0-0.2) H 05/12/20 05:39 Baso # (Auto) 0.0 X10^3/uL (0.0-0.1) 05/12/20 05:39 Absolute Nucleated RBC 0.0 /100WBC 05/12/20 05:39 Total Counted 100 05/11/20 12:08 Neutrophils % (Manual) 63 % (39-76) 05/11/20 12:08 Lymphocytes % (Manual) 32 % (13-43) 05/11/20 12:08 Monocytes % (Manual) 2 % (4-9) L 05/11/20 12:08 Eosinophils % (Manual) 3 % (0-6) 05/11/20 12:08 Plt Morphology Comment Normal (NORMAL) 05/11/20 12:08 RBC Morphology Normal (NORMAL) 05/11/20 12:08 PT 16.1 SECONDS (11.8-14.3) 05/11/20 05:25 INR Target Range - 05/11/20 05:25 INR 1.33 (0.8-1.3) H 05/11/20 05:25 APTT 39.8 SECONDS (22.9-36.5) H 05/11/20 05:25 PTT Comment - 05/11/20 05:25 Sodium 137 mmol/L (136-145) 05/12/20 05:39 Corrected Sodium 137 mmol/L (136-145) 05/12/20 05:39 Potassium 3.8 mmol/L (3.5-5.1) 05/12/20 05:39 Chloride 103 mmol/L (98-107) 05/12/20 05:39 Carbon Dioxide 29.6 mmol/L (21-32) 05/12/20 05:39 BUN 18 mg/dL (7-18) 05/12/20 05:39 Creatinine 1.35 mg/dL (0.55-1.02) H 05/12/20 05:39 Est GFR (MDRD) Af Amer 48 (>60) L 05/12/20 05:39 Est GFR (MDRD) Non-Af 39 (>60) L 05/12/20 05:39 Glucose 118 mg/dL (65-99) H 05/12/20 05:39 Calcium 8.5 mg/dL (8.5-10.1) 05/12/20 05:39 Corrected Calcium 9.3 mg/dL (8.5-10.1) 05/12/20 05:39 Magnesium 1.7 mg/dL (1.7-2.9) 05/11/20 05:25 Iron 45 ug/dL (50-175) L 05/11/20 05:25 Transferrin 232 mg/dL (202-364) 05/11/20 05:25 Ferritin 19 ng/mL (8-252) 05/11/20 05:25 Total Bilirubin 0.20 mg/dL (0.2-1.0) 05/12/20 05:39 AST 17 Units/L (15-37) 05/12/20 05:39 ALT 17 Units/L (12-78) 05/12/20 05:39 Alkaline Phosphatase 84 Units/L (46-116) 05/12/20 05:39 Creatine Kinase 19 Units/L (26-192) L 05/11/20 05:25 CK-MB (CK-2) < 1.0 ng/mL (0-4.0) 05/11/20 05:25 CK/CKMB % Calc 5.3 % (<4) 05/11/20 05:25 Troponin I 0.05 ng/mL (0-1.5) 05/11/20 05:25 Total Protein 5.8 g/dL (6.4-8.2) L 05/12/20 05:39 Albumin 3.0 g/dL (3.4-5.0) L 05/12/20 05:39 Globulin 2.8 g/dL (2.5-4.5) 05/12/20 05:39 Albumin/Globulin Ratio 1.1 Ratio (1.1-2.1) 05/12/20 05:39 Triglycerides 163 mg/dL (0-150) H 05/11/20 05:25 Cholesterol 148 mg/dL (0-200) 05/11/20 05:25 LDL Cholesterol, Calc 68 mg/dL (0-100) 05/11/20 05:25 HDL Cholesterol 47 mg/dL (40-60) 05/11/20 05:25 Cholesterol/HDL Ratio 3.1 (0.0-5.0) 05/11/20 05:25 Vitamin B12 569 pg/mL (193-986) 05/11/20 05:25 Folate 7.7 ng/mL (>8.6) L 05/11/20 05:25 Free T4 1.02 ng/dL (0.76-1.46) 05/11/20 05:25 TSH 3rd Generation 1.651 uIU/mL (0.358-3.74) 05/11/20 05:25 Specimen Type Catherized urine 05/10/20 12:50 Urine Color Yellow (YELLOW) 05/10/20 12:50 Urine Appearance Clear (CLEAR) 05/10/20 12:50 Urine pH 7.0 (5.0 - 8.0) 05/10/20 12:50 Ur Specific [place] 1.010 (1.000-1.030) 05/10/20 12:50 Urine Protein Negative (NEGATIVE) 05/10/20 12:50 Urine Glucose (UA) Negative (NEGATIVE) 05/10/20 12:50 Urine Ketones Negative (NEGATIVE) 05/10/20 12:50 Urine Occult Blood 1+ (NEGATIVE) 05/10/20 12:50 Urine Nitrite Negative (NEGATIVE) 05/10/20 12:50 Urine Bilirubin Negative (NEGATIVE) 05/10/20 12:50 Urine Urobilinogen Normal (NORMAL) 05/10/20 12:50 Ur Leukocyte Esterase Negative (NEGATIVE) 05/10/20 12:50 Urine RBC 3-5 /HPF (0-3) A 05/10/20 12:50 Urine WBC 0-2 /HPF (0-5) 05/10/20 12:50 Ur Squamous Epith Cells Few /HPF (NEGATIVE) 05/10/20 12:50 Urine Bacteria Trace /HPF (NEGATIVE) 05/10/20 12:50 Ur Culture Indicated? No/not indicated 05/10/20 12:50 Stool Description 10g,brown,semisolid 05/11/20 10:00 Stl Occult Blood (IFOB) Positive (NEGATIVE) A 05/11/20 10:00 - Plan (1) Acute GI bleeding Status: Acute Plan: REPEAT OCCULT STOOL, AM LABS. ANEMIA PANEL, PROTONIX IV BID. HOLD BLOOD THINNERS, IV HYDRATION. STRICT I&OS, VERIFY HOME MEDICATION. CE AND EKG, CXR ON ADMISSION. CAROTID ARTERY US, IV ABTX FOR UTI, CULTURE PENDING (2) UTI (urinary tract infection) Status: Acute Qualifiers: Urinary tract infection type: acute cystitis Hematuria presence: with hematuria Qualified Code(s): N30.01 - Acute cystitis with hematuria (3) Dizziness Status: Acute (4) Weakness generalized Status: Acute (5) Current use of anticoagulant therapy Status: Acute
[2020-05-12] MEDS: PATIENT'S HOME MEDICATION (Mirabegron [Myrbetriq] 25 MG) PO SCH (18:10)
[2020-05-12] MEDS: CLARITIN PO SCH (18:12)
[2020-05-12] MEDS: FLONASE NASAL SPRAY ENOSTRIL SCH (18:12)
[2020-05-12] MEDS: FLOMAX PO SCH (20:20)
[2020-05-12] MEDS: KLONOPIN TAB 1 MG PO PRN (23:39)
[2020-05-13] MEDS: ANTIVERT TAB 25 MG PO SCH (06:12)
[2020-05-13] MEDS: CARAFATE ORAL SUSP PO SCH ×2 (06:14→12:08)
[2020-05-13 06:18] LABS: BASOPHILS % (AUTO) 0.7 % (0.2-1.0); EOSINOPHILS # (AUTO) 0.3 x10^3/uL (0.0-0.2); HEMATOCRIT 34.2 % (36.0-47.0); HEMOGLOBIN 11.7 g/dL (12.0-16.0); LYMPHOCYTES # (AUTO) 2.4 X10^3/uL (1.3-2.9); LYMPHOCYTES % (AUTO) 40.9 % (21.0-51.0); MEAN CORPUSCULAR HEMOGLOBIN 28.8 pg (27.0-34.0); MEAN CORPUSCULAR HGB CONC 34.2 g/dL (33.0-35.0); MEAN PLATELET VOLUME 8.4 fL (7.4-11.0); MONOCYTES # (AUTO) 0.6 x10^3/uL (0.3-0.8); MONOCYTES % (AUTO) 10.7 % (0.0-13.0); NEUTROPHILS # (AUTO) 2.5 x10^3/uL (2.2-4.8); NEUTROPHILS % (AUTO) 42.7 % (42.0-75.0); PLATELET COUNT 142 X10^3/uL (150.0-450.0); RED BLOOD COUNT 4.07 X10^6/uL (3.5-5.4); RED CELL DISTRIBUTION WIDTH 13.8 % (11.6-16.5); WHITE BLOOD COUNT 5.9 X10^3/uL (3.6-10.0)
[2020-05-13 06:34] LABS: CALCIUM 8.4 mg/dL (8.5-10.1); CARBON DIOXIDE 26.8 mmol/L (21-32); COR CA(FOR HYPOALB) 9.2 mg/dL (8.5-10.1); CREATININE 1.46 mg/dL (0.55-1.02); TOTAL PROTEIN 5.6 g/dL (6.4-8.2)
[2020-05-13] MEDS: DETROL LA 4 MG CAP EXT REL PO SCH (08:05)
[2020-05-13] MEDS: LOPRESSOR TAB 50 MG PO SCH (08:06)
[2020-05-13] MEDS: ARICEPT TAB 5 MG PO SCH (08:06)
[2020-05-13] MEDS: ALDACTONE TAB 25 MG PO SCH (08:06)
[2020-05-13] MEDS: CLARITIN PO SCH (08:06)
[2020-05-13] MEDS: MICRO K EXTEN CAP 10 MEQ PO SCH (08:06)
[2020-05-13] MEDS: PROTONIX INJ 40 MG VIAL IVP SCH (08:07)
[2020-05-13] MEDS: MAG-OX TAB PO SCH (08:08)
[2020-05-13] MEDS: FLONASE NASAL SPRAY ENOSTRIL SCH (08:08)
[2020-05-13 08:24] VITALS: BP 128/57
== END 2020-05-13 11:25 | disposition home health service (06) ==
LOC: MED/SURG 11:24 → ER 11:24 → MED/SURG 15:08
PROVIDERS: ADMIT Internal Medicine; ATTEND Internal Medicine
DX: R53.1 Weakness; M19.90 Unspecified osteoarthritis, unspecified site; R94.4 Abnormal results of kidney function studies; K92.1 Melena; K21.9 Gastro-esophageal reflux disease without esophagitis; D50.8 Other iron deficiency anemias; I10 Essential (primary) hypertension; R79.1 Abnormal coagulation profile; R94.31 Abnormal electrocardiogram [ECG] [EKG]; R42 Dizziness and giddiness; N30.01 Acute cystitis with hematuria; M51.36 Other intervertebral disc degeneration, lumbar region

== ENCOUNTER 2020-12-06 16:06 | Observation (INO) ==
--- NOTE | 2020-12-06 16:36 | DR.DIZZY ---
HPI Time seen Time Seen by Provider: 12/06/20 16:34 PCP Primary Care Physician: Juan HPI Comment HPI Comment: PATIENT IS 89YR OLD FEMALE IN ER WITH GENERALIZED WEAKNESS, COUGH, CONGESTION AND ANOREXIA. PATIENT IS RUNNING FEVER BUT DENIES DIARRHEA AND VOMITING. NO DYSURIA. PATIENT HAVE NOT FELT WELL FOR FEW DAYS. DENIES DYSPHAGIA. Complaint Chief Complaint Doctor Comments: COUGH, CONGESTION AND GENERALIZED WEAKNESS Chief Complaint:: Pt c/o general weakness, decreased appetite and productive cough. COVID-19 Coronavirus risk:travel/contact w/high risk person: No Has patient experienced Coronavirus symptoms: No Nurses Notes Reviewed Nurses Notes Review: Yes Source History Provided: Patient, Family Member and EMS Mode of Arrival Mode of Arrival: Stretcher Timing Onset of Chief Complaint: 12/06/20 Came on: Suddenly Duration Duration: Constant Duration: Days Location of Weakness Weakness Location: Generalized Context Onset: At rest Does pt take pot. toxic medication?: No History of: None Stroke Symptoms: None Severity Severity: Abnormal activity level Modifying factors Worsens: Other (EXERTION.) Associated signs and symptoms Associated Signs and Symptoms: Weak PMH PMH Past Medical History: Yes Past Medical History: CHF, COPD, Hypertension and Renal Disease Past Medical History Comment: afib Past Surgical History: Yes Surgical History: Cholecystectomy, Hysterectomy, Joint Replacement and Other Family History History of Family Medical Conditions: Yes Family Medical History: Cancer Social History Does patient currently use any type of tobacco product: No Have you used tobacco products in the last 12 months: No Type of Tobacco Use: None Does any household member use tobacco: No Alcohol Use: None Do you use any recreational Drugs:: No Lives With: Alone Lives Where: Home Travel Risk Coronavirus risk:travel/contact w/high risk person: No Has patient experienced Coronavirus symptoms: No Infectious screening In the last 2 months have you had wt loss of >10#?: NO Have you had fever, night sweats or hemotysis?: No Have you traveled outside the country in the last 6 months?: No Isolation: Standard ROS Review of Systems Constitutional: See HPI, Fever, Weakness, Fatigue and Loss of Appetite Eyes: No Symptoms Reported and See HPI ENTM: See HPI and Nose Congestion; negative Nose Discharge Respiratoy: See HPI, Moist Cough and Short of Breath (ON EXERTION.); negative Wheezing Cardiovascular: See HPI and Edema; negative Chest Pain Gastrointestinal/Abdominal: No Symptoms Reported and See HPI; negative Abdominal Pain, Diarrhea and Vomiting Genitourinary: No Symptoms Reported and See HPI; negative Dysuria Neurological: See HPI and Weakness; negative Headache and Dizziness Musculoskeletal: See HPI and Back Pain Integumentary: See HPI and Dryness; negative Rash and Juandice Hematologic/Lymphatic: See HPI and Easy Bruising; negative Swollen Glands Endocrine: See HPI and Decreased Appetite; negative Increased Thirst and Increased Urine Psychiatric: No Symptoms Reported and See HPI All Other Systems: Reviewed and Negative PE Vital Signs Vitals: Temperature 99.6 F Pulse Rate 85 Respiratory Rate 20 Blood Pressure [Right Arm] 125/69 Blood Pressure 142/66 O2 Sat by Pulse Oximetry 100 General Limitations: No Limitations General Appearance: Alert and In Distress (ON EXERTION.) Head Head Exam: Normal Inspection and Atraumatic Eyes Eye exam: Normal Appearance and PERRL; negative Scleral Icterus and Conjunctival Injection Pupils: Regular, Round: Bilateral and Reactive: Bilateral Sclera/Conjunctival: Normal Inspection: Bilateral ENT ENT Exam: Normal Exam, Normal Oropharynx, Normal External Ear Exam and TM's Normal Bilaterally Neck Neck Exam: Normal Inspection, Full ROM and Trachea Midline; negative Tenderness and Lymphadenopathy Chest Chest Inspection: Normal Inspection and Symmetric Chest Wall Rise; negative Tenderness Respiratory Respiratory Exam: Normal Lung Sounds Bilat and Respiratory Distress; negative Accessory Muscle Use and Chest Wall Tenderness Respiratory Exam: Bilateral: Rhonchi and Lower: Rhonchi Cardiovascular Cardiovascular Exam: Regular Rate, Normal Rhythm and Normal Heart Sounds; negative Systolic Murmur and Diastolic Murmur Abdominal Exam Abdominal Exam: Normal Inspection, Normal Bowel Sounds and Soft; negative Tenderness Rectal Rectal Exam: Deferred Extremeties Extremities Exam: Full ROM and Edema Back Back Exam: Normal Inspection, Full ROM and Paraspinal Tenderness Neurologic Neurological Exam: Alert and Oriented X3; negative Motor Sensory Deficit Patient Oriented To: Person and Place; negative Time Speech: Fluid Speech Cranial Nerve Exam: EOM Function (II, III, IV, ): Normal, Facial Sensation (V): Normal, Facial Palsy (VII): Normal, Gag reflex (XI): Normal and Tongue Deviation: Normal Motor Strength - LUE: 4/5 Motor Strength - RUE: 4/5 Motor Strength - LLE: 4/5 Motor Strength - RLE: 4/5 Upper Motor Neuron Exam: Babinski Sign: Normal Psychiatric Psychiatric Exam: Normal Affect and Normal Mood Skin Skin Exam: Dry MDM Differential Diagnosis Differential Diagnosis: Anemia, CVA, Dehydration, Dysrhythmia, Electrolyte disorder, Hypoglycemia, Myocardial infarction and Central Vertigo COURSE Treatment Treatment: SEE ORDERS. Education/Counseling Education/Counseling: Patient Educated On: Diagnosis ROR Labs Reviewed Laboratory Results Reviewed?: Yes Result Diagrams: 12/08/20 05:42 12/08/20 05:42 Laboratory: 12/06/20 16:48 Urine,Catheterized Urine Culture - Final Klebsiella Pneumoniae WBC 11.1 X10^3/uL (3.6-10.0) H 12/06/20 16:50 RBC 4.18 X10^6/uL (3.5-5.4) 12/06/20 16:50 Hgb 11.9 g/dL (12.0-16.0) L 12/06/20 16:50 Hct 34.9 % (36.0-47.0) L 12/06/20 16:50 MCV 83.6 fL (80.0-100.0) 12/06/20 16:50 MCH 28.3 pg (27.0-34.0) 12/06/20 16:50 MCHC 33.9 g/dL (33.0-35.0) 12/06/20 16:50 RDW 14.3 % (11.6-16.5) 12/06/20 16:50 Plt Count 167 X10^3/uL (150.0-450.0) 12/06/20 16:50 MPV 8.0 fL (7.4-11.0) 12/06/20 16:50 Neut % (Auto) 76.0 % (42.0-75.0) H 12/06/20 16:50 Lymph % (Auto) 15.9 % (21.0-51.0) L 12/06/20 16:50 [place] % (Auto) 7.1 % (0.0-13.0) 12/06/20 16:50 Eos % (Auto) 0.3 % (0.9-2.9) L 12/06/20 16:50 Baso % (Auto) 0.7 % (0.2-1.0) 12/06/20 16:50 Neut # (Auto) 8.4 x10^3/uL (2.2-4.8) H 12/06/20 16:50 Lymph # (Auto) 1.8 X10^3/uL (1.3-2.9) 12/06/20 16:50 [place] # (Auto) 0.8 x10^3/uL (0.3-0.8) 12/06/20 16:50 Eos # (Auto) 0.0 x10^3/uL (0.0-0.2) 12/06/20 16:50 Baso # (Auto) 0.1 X10^3/uL (0.0-0.1) 12/06/20 16:50 Absolute Nucleated RBC 0.0 /100WBC 12/06/20 16:50 Sample Site Rr 12/06/20 17:58 ABG pH 7.460 (7.35-7.45) H 12/06/20 17:58 ABG pCO2 57.0 mmHg (35.0-45.0) H* 12/06/20 17:58 ABG pO2 110.0 mmHg (80.0-100.0) H 12/06/20 17:58 ABG HCO3 40.5 mmol/L (22-26) H* 12/06/20 17:58 ABG O2 Saturation 99.0 % (90-100) 12/06/20 17:58 ABG Base Excess 14.2 mmol/L (-2.0-2.0) H 12/06/20 17:58 Rl Test Pos 12/06/20 17:58 A-a Gradient 18.0 mmHg 12/06/20 17:58 FiO2 28.0 12/06/20 17:58 Blood Gas Comments Mylene well, kh 12/06/20 17:58 Sodium 139 mmol/L (136-145) 12/06/20 16:50 Corrected Sodium 141 mmol/L (136-145) 12/06/20 16:50 Potassium 4.1 mmol/L (3.5-5.1) 12/06/20 16:50 Chloride 97 mmol/L (98-107) L 12/06/20 16:50 Carbon Dioxide 37.1 mmol/L (21-32) H 12/06/20 16:50 BUN 22 mg/dL (7-18) H 12/06/20 16:50 Creatinine 1.55 mg/dL (0.55-1.02) H 12/06/20 16:50 Est GFR (MDRD) Af Amer 40 (>60) L 12/06/20 16:50 Est GFR (MDRD) Non-Af 33 (>60) L 12/06/20 16:50 Glucose 190 mg/dL (65-99) H 12/06/20 16:50 Calcium 9.4 mg/dL (8.5-10.1) 12/06/20 16:50 Corrected Calcium 10.0 mg/dL (8.5-10.1) 12/06/20 16:50 Total Bilirubin 0.40 mg/dL (0.2-1.0) 12/06/20 16:50 AST 18 Units/L (15-37) 12/06/20 16:50 ALT 19 Units/L (12-78) 12/06/20 16:50 Alkaline Phosphatase 90 Units/L (46-116) 12/06/20 16:50 Creatine Kinase 17 Units/L (26-192) L 12/06/20 16:50 CK-MB (CK-2) < 1.0 ng/mL (0-4.0) 12/06/20 16:50 CK/CKMB % Calc 5.9 % (<4) 12/06/20 16:50 Troponin I 0.06 ng/mL (0-1.5) 12/06/20 16:50 B-Natriuretic Peptide 85.5 pg/mL (0-79) H 12/06/20 18:20 Total Protein 6.8 g/dL (6.4-8.2) 12/06/20 16:50 Albumin 3.3 g/dL (3.4-5.0) L 12/06/20 16:50 Globulin 3.5 g/dL (2.5-4.5) 12/06/20 16:50 Albumin/Globulin Ratio 0.9 Ratio (1.1-2.1) L 12/06/20 16:50 Specimen Type Catherized urine 12/06/20 16:48 Urine Color Yellow (YELLOW) 12/06/20 16:48 Urine Appearance Hazy (CLEAR) 12/06/20 16:48 Urine pH 6.5 (5.0 - 8.0) 12/06/20 16:48 Ur Specific [place] 1.010 (1.000-1.030) 12/06/20 16:48 Urine Protein 2+ (NEGATIVE) 12/06/20 16:48 Urine Glucose (UA) Negative (NEGATIVE) 12/06/20 16:48 Urine Ketones Negative (NEGATIVE) 12/06/20 16:48 Urine Occult Blood 2+ (NEGATIVE) 12/06/20 16:48 Urine Nitrite Negative (NEGATIVE) 12/06/20 16:48 Urine Bilirubin Negative (NEGATIVE) 12/06/20 16:48 Urine Urobilinogen Normal (NORMAL) 12/06/20 16:48 Ur Leukocyte Esterase 3+ (NEGATIVE) 12/06/20 16:48 Urine RBC 3-5 /HPF (0-3) A 12/06/20 16:48 Urine WBC 10-20 /HPF (0-5) A 12/06/20 16:48 Ur Squamous Epith Cells Few /HPF (NEGATIVE) 12/06/20 16:48 Urine Bacteria 1+ /HPF (NEGATIVE) 12/06/20 16:48 Ur Culture Indicated? Yes/culture set up 12/06/20 16:48 Urine Opiates Screen Negative (NEG=<300) 12/06/20 16:48 Urine Methadone Screen Negative (NEG=<300) 12/06/20 16:48 Ur Barbiturates Screen Negative (NEG=<200) 12/06/20 16:48 Ur Phencyclidine Scrn Negative (NEG=<25) 12/06/20 16:48 Ur Amphetamines Screen Negative (NEG=<1000) 12/06/20 16:48 U Benzodiazepines Scrn Negative (NEG=<200) 12/06/20 16:48 Urine Cocaine Screen Negative (NEG=<300) 12/06/20 16:48 U Marijuana (THC) Screen Negative (NEG=<50) 12/06/20 16:48 SARS CoV-2 RNA Rapid BO Negative (NEGATIVE) 12/06/20 20:07 EKG Rate: 85 [place]: Normal Rhythm: NSR Block: 1 Hypertrophy: None ST: Nonsp (LOW VOLTAGE.) Opioid Opioid Risk Tool Age (Michael box if 16-45): No History of Preadolescent Sexual Abuse: No Total: 0 Total Score Risk Category: Low Risk Copyright: Joe LR predicting aberrant behaviors Diagnosis Discharge Problem: Generalized weakness, Bronchitis UTI (urinary tract infection) Qualifiers: Urinary tract infection type: site unspecified Hematuria presence: with hematuria Qualified Code(s): N39.0 - Urinary tract infection, site not specified AMS (altered mental status) Qualifiers: Altered mental status type: transient alteration of awareness Qualified Code(s): R40.4 - Transient alteration of awareness Instructions Instructions: Urinary Tract Infection, Adult Weakness, [id number] Acute Bronchitis, Adult, [id number] Heart Failure, [id number] Ciprofloxacin tablets Forms: Excuse From Work or School Precautions for COVID19 Patient Portal Social Distancing
[2020-12-06 16:57] LABS: BASOPHILS # (AUTO) 0.1 X10^3/uL (0.0-0.1); BASOPHILS % (AUTO) 0.7 % (0.2-1.0); EOSINOPHILS % (AUTO) 0.3 % (0.9-2.9); HEMATOCRIT 34.9 % (36.0-47.0); HEMOGLOBIN 11.9 g/dL (12.0-16.0); LYMPHOCYTES # (AUTO) 1.8 X10^3/uL (1.3-2.9); LYMPHOCYTES % (AUTO) 15.9 % (21.0-51.0); MEAN CORPUSCULAR HEMOGLOBIN 28.3 pg (27.0-34.0); MEAN CORPUSCULAR HGB CONC 33.9 g/dL (33.0-35.0); MEAN CORPUSCULAR VOLUME 83.6 fL (80.0-100.0); MONOCYTES # (AUTO) 0.8 x10^3/uL (0.3-0.8); MONOCYTES % (AUTO) 7.1 % (0.0-13.0); NEUTROPHILS # (AUTO) 8.4 x10^3/uL (2.2-4.8); PLATELET COUNT 167 X10^3/uL (150.0-450.0); RED BLOOD COUNT 4.18 X10^6/uL (3.5-5.4); RED CELL DISTRIBUTION WIDTH 14.3 % (11.6-16.5); WHITE BLOOD COUNT 11.1 X10^3/uL (3.6-10.0)
[2020-12-06 17:09] LABS: BILIRUBIN,URINE NEGATIVE (NEGATIVE); BLOOD/HEMOGLOBIN,URINE 2+ (NEGATIVE); GLUCOSE, URINE NEGATIVE (NEGATIVE); KETONES,URINE NEGATIVE (NEGATIVE); LEUKOCYTE ESTERASE ,URINE 3+ (NEGATIVE); NITRITES,URINE NEGATIVE (NEGATIVE); PH,URINE 6.5 (5.0 - 8.0); PROTEIN,URINE 2+ (NEGATIVE); UROBILINOGEN,URINE NORMAL (NORMAL)
[2020-12-06 17:10] LABS: APPEARANCE,URINE HAZY (CLEAR); COLOR,URINE YELLOW (YELLOW)
[2020-12-06 17:13] LABS: BLOOD UREA NITROGEN 22 mg/dL (7-18); CALCIUM 9.4 mg/dL (8.5-10.1); CARBON DIOXIDE 37.1 mmol/L (21-32); CHLORIDE 97 mmol/L (98-107); COR NA(FOR HYPERGLY) 141 mmol/L (136-145); CREATININE 1.55 mg/dL (0.55-1.02); SODIUM 139 mmol/L (136-145); TROPONIN I 0.06 ng/mL (0-1.5); eGFR NON BLACK RACES 33 (>60)
--- NOTE | 2020-12-06 17:17 | RAD ---
HISTORYPt c/o general weakness, decreased appetite and productive cough.[Cough]. [Dyspnea].Single portable view of the chest.Comparison: Chest radiograph dated September 03, 2020.Findings:The trachea is midline. The cardiac silhouette is stable. There are increased [perihilar] interstitial opacities seen, suggesting [central bronchitis]. The lungs [are otherwise clear without focal infiltrate or effusion]. The bony thorax unchanged. A presumed skin fold overlies the right hemithorax. No mediastinal shift is seen on this exam. No evidence for CHF, either.IMPRESSION:Radiographic findings suggesting [central bronchitis].[No lobar pneumonia or pleural effusion seen].Electronically signed by: RAMO WELSH III (Dec 06, 2020 17:15:18)
[2020-12-06 17:18] LABS: ALANINE AMINOTRANSFERASE 19 Units/L (12-78); ALBUMIN 3.3 g/dL (3.4-5.0); ALKALINE PHOSPHATASE 90 Units/L (46-116); ASPARTATE AMINO TRANSFERASE 18 Units/L (15-37); CKMB % 5.9 % (<4); CREATINE KINASE 17 Units/L (26-192); CREATINE KINASE MB < 1.0 ng/mL (0-4.0); TOTAL PROTEIN 6.8 g/dL (6.4-8.2)
[2020-12-06 17:24] LABS: BACTERIA,URINE 1+ /HPF (NEGATIVE); SQUAMOUS EPITHELIAL CELL,UR FEW /HPF (NEGATIVE)
[2020-12-06 18:09] LABS: ABG BASE EXCESS 14.2 mmol/L (-2.0-2.0)
[2020-12-06 18:10] LABS: ABG ALLEN TEST POS; ABG HCO3 40.5 mmol/L (22-26)
[2020-12-06] MEDS ORDERED: ROCEPHIN 1 GRAM IV PREMIX 1 G/50 ML IV.SOLN. IV ONE ×2 (19:02→19:10)
--- NOTE | 2020-12-06 19:53 | CT ---
EXAM: HEAD CT WITHOUT INTRAVENOUS CONTRASTHISTORY: Generalized weakness. Decreased appetite. Productive cough.TECHNIQUE: Spiral axial CT images are obtained through the brain without the administration of intravenous contrast. Additional sagittal and coronal reformatted images are reconstructed.DOSIMETRY: Total DLP 1187.8 mGycm; CTDI 70.8 mGyCOMPARISON: None available.FINDINGS:There are mild patchy parenchymal lucencies within the basal ganglia and white matter tracks of the centrum semiovale, consistent with chronic sequela of atherosclerotic microvascular ischemic disease. There is atherosclerotic disease of the carotid siphons.There is diffuse cerebral cortical atrophy. The centrum semiovale, basal ganglia, cerebellum, and brainstem are otherwise grossly unremarkable for a noncontrast CT scan. There is no acute intracranial hemorrhage, gross acute infarction, mass lesion, midline shift, or hydrocephalus seen. No extra-axial mass or abnormal fluid collection noted.The calvarium is intact. The partially imaged paranasal sinuses, middle ear cavities and mastoid air cells are clear.IMPRESSION:1. 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 Consider followup MRI with diffusion-weighted imaging to rule out occult acute infarction if clinically warranted.2. Atherosclerotic disease of the carotid siphons. Consider follow-up MRA as clinically warranted.3. No skull fracture, intracranial hemorrhage, mass lesion, midline shift, or hydrocephalus seen.Electronically signed by: Pedro Herbert (Dec 06, 2020 19:50:59)
[2020-12-06] MEDS: NS 1000 ML 1,000 ML IV SCH (23:02)
[2020-12-06 23:56] LABS: CKMB % 4.8 % (<4); CREATINE KINASE 21 Units/L (26-192); CREATINE KINASE MB < 1.0 ng/mL (0-4.0); TROPONIN I 0.06 ng/mL (0-1.5)
[2020-12-07 02:07] VITALS: BMI 32.1
[2020-12-07 05:54] LABS: BASOPHILS % (AUTO) 0.5 % (0.2-1.0); EOSINOPHILS # (AUTO) 0.1 x10^3/uL (0.0-0.2); HEMATOCRIT 32.5 % (36.0-47.0); HEMOGLOBIN 10.9 g/dL (12.0-16.0); LYMPHOCYTES # (AUTO) 2.4 X10^3/uL (1.3-2.9); LYMPHOCYTES % (AUTO) 31.1 % (21.0-51.0); MEAN CORPUSCULAR HEMOGLOBIN 28.4 pg (27.0-34.0); MEAN CORPUSCULAR HGB CONC 33.4 g/dL (33.0-35.0); MEAN CORPUSCULAR VOLUME 84.8 fL (80.0-100.0); MEAN PLATELET VOLUME 8.4 fL (7.4-11.0); MONOCYTES # (AUTO) 0.8 x10^3/uL (0.3-0.8); MONOCYTES % (AUTO) 10.3 % (0.0-13.0); NEUTROPHILS # (AUTO) 4.3 x10^3/uL (2.2-4.8); NEUTROPHILS % (AUTO) 56.1 % (42.0-75.0); PLATELET COUNT 152 X10^3/uL (150.0-450.0); RED BLOOD COUNT 3.83 X10^6/uL (3.5-5.4); RED CELL DISTRIBUTION WIDTH 14.3 % (11.6-16.5); WHITE BLOOD COUNT 7.6 X10^3/uL (3.6-10.0)
[2020-12-07 06:20] LABS: ALANINE AMINOTRANSFERASE 13 Units/L (12-78); ALKALINE PHOSPHATASE 80 Units/L (46-116); ASPARTATE AMINO TRANSFERASE 16 Units/L (15-37); BLOOD UREA NITROGEN 20 mg/dL (7-18); CALCIUM 9.2 mg/dL (8.5-10.1); CARBON DIOXIDE 36.7 mmol/L (21-32); CHLORIDE 98 mmol/L (98-107); CKMB % 5.9 % (<4); COR NA(FOR HYPERGLY) 140 mmol/L (136-145); CREATINE KINASE 17 Units/L (26-192); CREATINE KINASE MB < 1.0 ng/mL (0-4.0); MAGNESIUM 2.2 mg/dL (1.7-2.9); SODIUM 139 mmol/L (136-145); TOTAL PROTEIN 6.2 g/dL (6.4-8.2); TROPONIN I 0.06 ng/mL (0-1.5); eGFR NON BLACK RACES 41 (>60)
[2020-12-07] MEDS ORDERED: KLONOPIN TAB 1 MG PO PRN (08:03)
[2020-12-07] MEDS ORDERED: ULTRAM PO PRN (08:03)
--- NOTE | 2020-12-07 09:24 | DR.H&P ---
H&P History & Physical for Day of: H&P Date: 12/07/20 Chief Complaint Chief Complaint: generalized weakness and cough Allergies Allergies Allergy/AdvReac Type Severity Reaction Status Date / Time albuterol [From DuoNeb] Allergy Verified 08/08/20 20:11 aspirin Allergy Verified 08/08/20 16:55 ipratropium [From DuoNeb] Allergy Verified 08/08/20 20:11 Sulfa (Sulfonamide Allergy Verified 08/08/20 16:55 Antibiotics) History of Present Illness History of Present Illness: Ms. Lai is a 89y/o female with a PMH of COPD, Atrial fibrillation, CKD presented with worsening productive cough, generalized weakness and poor appetite. She states her symptoms have been progressing and yesterday she felt so weak she could not get up so she was brought to the ED. She uses 2L continuous oxygen at home. She has been coughing up yellow sputum. She does ambulate with assistance at home. Denies dyspnea on exertion. Denies chest pain. Denies fever or chills. Denies GI Sx. In the ER, it was mentioned that patient had been confused. She is alert and oriented this morning. Labs: WBC 7.6 (down from 11.1), Hgb 10.9 Plt 152 K: 3.4 BUN/Cr: 20/1.30 (down from 1.55) Trop 0.06 x 3 BNP 85 COVID (-) CXR: central bronchitis noted CT-brain: chronic microvascular disease, no acute process noted UA: suggestive of infection She was given one dose of Rocephin. Plan: continue Rocephin, will add azithromycin. Will also add prednisone 40 mg daily for wheezing on exam and COPD exacerbation. Patient is currently on 2L home oxygen. Order sputum Cx. Replace K as per protocol. Continue gentle hydraiton at 50cc/hr. Resume home medications including eliquis, metoprolol and clonazepam. Follow urine Cx. Monitor AM labs/imaging. Past Medical History Past Medical History: COPD, Hypertension and Renal Disease Additional Medical History: Atrial fibrillation Past Surgical History Surgical History: Cholecystectomy, Hysterectomy, Joint Replacement and Other Family History Family Medical History: Cancer Social History Does patient currently use any type of tobacco product: No Have you used tobacco products in the last 12 months: No Type of Tobacco Use: None Does any household member use tobacco: No Alcohol Use: None Drug Use: None Prescription drug monitoring program results: PDMP reviewed and no concerns identified Medications Home Medications: albuterol [From DuoNeb] Allergy (Verified 08/08/20 20:11) aspirin Allergy (Verified 08/08/20 16:55) ipratropium [From DuoNeb] Allergy (Verified 08/08/20 20:11) Sulfa (Sulfonamide Antibiotics) Allergy (Verified 08/08/20 16:55) CONTINUE taking the following medications ergocalciferol (vitamin D2) [Vitamin D2] 1,250 mcg PO WEEKLY 12/06/20 [History] sucralfate [Carafate] 600 mg PO TID 12/06/20 [History] torsemide 20 mg PO DAILY 12/06/20 [History] Labs Result Diagrams: 12/07/20 05:17 12/07/20 05:17 Labs: Laboratory WBC 7.6 X10^3/uL (3.6-10.0) 12/07/20 05:17 RBC 3.83 X10^6/uL (3.5-5.4) 12/07/20 05:17 Hgb 10.9 g/dL (12.0-16.0) L 12/07/20 05:17 Hct 32.5 % (36.0-47.0) L 12/07/20 05:17 MCV 84.8 fL (80.0-100.0) 12/07/20 05:17 MCH 28.4 pg (27.0-34.0) 12/07/20 05:17 MCHC 33.4 g/dL (33.0-35.0) 12/07/20 05:17 RDW 14.3 % (11.6-16.5) 12/07/20 05:17 Plt Count 152 X10^3/uL (150.0-450.0) 12/07/20 05:17 MPV 8.4 fL (7.4-11.0) 12/07/20 05:17 Neut % (Auto) 56.1 % (42.0-75.0) 12/07/20 05:17 Lymph % (Auto) 31.1 % (21.0-51.0) 12/07/20 05:17 [place] % (Auto) 10.3 % (0.0-13.0) 12/07/20 05:17 Eos % (Auto) 2.0 % (0.9-2.9) 12/07/20 05:17 Baso % (Auto) 0.5 % (0.2-1.0) 12/07/20 05:17 Neut # (Auto) 4.3 x10^3/uL (2.2-4.8) 12/07/20 05:17 Lymph # (Auto) 2.4 X10^3/uL (1.3-2.9) 12/07/20 05:17 [place] # (Auto) 0.8 x10^3/uL (0.3-0.8) 12/07/20 05:17 Eos # (Auto) 0.1 x10^3/uL (0.0-0.2) 12/07/20 05:17 Baso # (Auto) 0.0 X10^3/uL (0.0-0.1) 12/07/20 05:17 Absolute Nucleated RBC 0.0 /100WBC 12/07/20 05:17 Sample Site Rr 12/06/20 17:58 ABG pH 7.460 (7.35-7.45) H 12/06/20 17:58 ABG pCO2 57.0 mmHg (35.0-45.0) H* 12/06/20 17:58 ABG pO2 110.0 mmHg (80.0-100.0) H 12/06/20 17:58 ABG HCO3 40.5 mmol/L (22-26) H* 12/06/20 17:58 ABG O2 Saturation 99.0 % (90-100) 12/06/20 17:58 ABG Base Excess 14.2 mmol/L (-2.0-2.0) H 12/06/20 17:58 Rl Test Pos 12/06/20 17:58 A-a Gradient 18.0 mmHg 12/06/20 17:58 FiO2 28.0 12/06/20 17:58 Blood Gas Comments Mylene well, 12/06/20 17:58 Sodium 139 mmol/L (136-145) 12/07/20 05:17 Corrected Sodium 140 mmol/L (136-145) 12/07/20 05:17 Potassium 3.4 mmol/L (3.5-5.1) L 12/07/20 05:17 Chloride 98 mmol/L (98-107) 12/07/20 05:17 Carbon Dioxide 36.7 mmol/L (21-32) H 12/07/20 05:17 BUN 20 mg/dL (7-18) H 12/07/20 05:17 Creatinine 1.30 mg/dL (0.55-1.02) H 12/07/20 05:17 Est GFR (MDRD) Af Amer 50 (>60) L 12/07/20 05:17 Est GFR (MDRD) Non-Af 41 (>60) L 12/07/20 05:17 Glucose 152 mg/dL (65-99) H 12/07/20 05:17 Calcium 9.2 mg/dL (8.5-10.1) 12/07/20 05:17 Corrected Calcium 10.0 mg/dL (8.5-10.1) 12/07/20 05:17 Magnesium 2.2 mg/dL (1.7-2.9) 12/07/20 05:17 Total Bilirubin 0.40 mg/dL (0.2-1.0) 12/07/20 05:17 AST 16 Units/L (15-37) 12/07/20 05:17 ALT 13 Units/L (12-78) 12/07/20 05:17 Alkaline Phosphatase 80 Units/L (46-116) 12/07/20 05:17 Creatine Kinase 17 Units/L (26-192) L 12/07/20 05:17 CK-MB (CK-2) < 1.0 ng/mL (0-4.0) 12/07/20 05:17 CK/CKMB % Calc 5.9 % (<4) 12/07/20 05:17 Troponin I 0.06 ng/mL (0-1.5) 12/07/20 05:17 B-Natriuretic Peptide 85.5 pg/mL (0-79) H 12/06/20 18:20 Total Protein 6.2 g/dL (6.4-8.2) L 12/07/20 05:17 Albumin 3.0 g/dL (3.4-5.0) L 12/07/20 05:17 Globulin 3.2 g/dL (2.5-4.5) 12/07/20 05:17 Albumin/Globulin Ratio 0.9 Ratio (1.1-2.1) L 12/07/20 05:17 Specimen Type Catherized urine 12/06/20 16:48 Urine Color Yellow (YELLOW) 12/06/20 16:48 Urine Appearance Hazy (CLEAR) 12/06/20 16:48 Urine pH 6.5 (5.0 - 8.0) 12/06/20 16:48 Ur Specific White 1.010 (1.000-1.030) 12/06/20 16:48 Urine Protein 2+ (NEGATIVE) 12/06/20 16:48 Urine Glucose (UA) Negative (NEGATIVE) 12/06/20 16:48 Urine Ketones Negative (NEGATIVE) 12/06/20 16:48 Urine Occult Blood 2+ (NEGATIVE) 12/06/20 16:48 Urine Nitrite Negative (NEGATIVE) 12/06/20 16:48 Urine Bilirubin Negative (NEGATIVE) 12/06/20 16:48 Urine Urobilinogen Normal (NORMAL) 12/06/20 16:48 Ur Leukocyte Esterase 3+ (NEGATIVE) 12/06/20 16:48 Urine RBC 3-5 /HPF (0-3) A 12/06/20 16:48 Urine WBC 10-20 /HPF (0-5) A 12/06/20 16:48 Ur Squamous Epith Cells Few /HPF (NEGATIVE) 12/06/20 16:48 Urine Bacteria 1+ /HPF (NEGATIVE) 12/06/20 16:48 Ur Culture Indicated? Yes/culture set up 12/06/20 16:48 Urine Opiates Screen Negative (NEG=<300) 12/06/20 16:48 Urine Methadone Screen Negative (NEG=<300) 12/06/20 16:48 Ur Barbiturates Screen Negative (NEG=<200) 12/06/20 16:48 Ur Phencyclidine Scrn Negative (NEG=<25) 12/06/20 16:48 Ur Amphetamines Screen Negative (NEG=<1000) 12/06/20 16:48 U Benzodiazepines Scrn Negative (NEG=<200) 12/06/20 16:48 Urine Cocaine Screen Negative (NEG=<300) 12/06/20 16:48 U Marijuana (THC) Screen Negative (NEG=<50) 12/06/20 16:48 SARS CoV-2 RNA Rapid BO Negative (NEGATIVE) 12/06/20 20:07 Review of Systems Constitutional: Weakness Eyes: No Symptoms Reported ENT: No Symptoms Reported Respiratory: Cough, Shortness of Breath and Wheezing Cardiovascular: No Symptoms Reported Gastrointestinal: No Symptoms Reported Genitourinary: No Symptoms Reported Musculoskeletal: No Symptoms Reported Skin: No Symptoms Reported Neurological: Confusion Physical Exam Vital Signs: Temperature 97.7 F Pulse Rate [Right Radial] 77 Pulse Rate 98 Respiratory Rate 16 Blood Pressure [Right Arm] 132/64 Blood Pressure 152/68 O2 Sat by Pulse Oximetry 92 Oriented: Normal Eyes: Normal Ear: Normal Nose: Normal Throat: Normal Respiratory: Rhonchi Throughout and Wheezes Throughout Cardiovascular: Normal Auscultation: Bowel Sounds: Normal Palpation: Normal Tenderness: Normal Skin: Decreased Turgur Musculoskeletal: Normal Psychiatric: Normal Mood Description: Calm and Appropriate Affect: Normal Speech Pattern: Clear and Appropriate Assessment/Plan (1) COPD exacerbation: Status: Acute (2) UTI (urinary tract infection): Qualifiers: Hematuria presence: with hematuria Urinary tract infection type: acute cystitis Qualified Code(s): N30.01 - Acute cystitis with hematuria Status: Acute (3) Bronchitis: Status: Acute (4) Weakness generalized: Status: Acute (5) CKD (chronic kidney disease) stage 3, GFR 30-59 ml/min: Qualifiers: Chronic kidney disease stage 3 subtype: stage 3a (GFR 45-59) Qualified Code(s): N18.31 - Chronic kidney disease, stage 3a Status: Acute (6) A-fib: Qualifiers: Atrial fibrillation type: persistent (not longstanding) Qualified Code(s): I48.19 - Other persistent atrial fibrillation Status: Acute Review H&P Reviewed: Yes Patient was examined?: Yes
[2020-12-07] MEDS: DETROL LA 4 MG CAP EXT REL PO SCH (09:38)
[2020-12-07] MEDS: LOPRESSOR TAB 50 MG PO SCH ×2 (09:39→20:13)
[2020-12-07] MEDS: ELIQUIS PO SCH ×2 (09:39→20:13)
[2020-12-07] MEDS: MICRO K EXTEN CAP 10 MEQ PO SCH (09:40)
[2020-12-07] MEDS: ZITHROMAX TAB 250 MG PO SCH (09:43)
[2020-12-07] MEDS: PREDNISONE TAB 20 MG PO SCH (09:43)
[2020-12-07] MEDS ORDERED: PULMICORT NEB TX 0.5 MG NEB ONE (09:46)
[2020-12-07] MEDS: PULMICORT NEB TX 0.5 MG NEB SCH ×2 (09:49→20:44)
[2020-12-07] MEDS: MIRABEGRON 25 MG PO SCH (09:57)
[2020-12-07] MEDS: NS 1000 ML 1,000 ML IV SCH ×2 (10:41→20:18)
[2020-12-07] MEDS ORDERED: MILK OF MAGNESIA PO PRN (11:55)
[2020-12-07] MEDS: CARAFATE ORAL SUSP PO SCH ×2 (14:19→21:02)
[2020-12-07] MEDS ORDERED: ROCEPHIN VIAL 1 GRAM 1 G in NS 100 ML IV + SPIKE MINIBAG* 100 ML IV SCH (20:00)
[2020-12-07] MEDS ORDERED: FLOMAX PO SCH (21:00)
[2020-12-08] MEDS: NS 1000 ML 1,000 ML IV SCH (01:22)
[2020-12-08 05:54] LABS: BASOPHILS # (AUTO) 0.1 X10^3/uL (0.0-0.1); BASOPHILS % (AUTO) 0.7 % (0.2-1.0); EOSINOPHILS % (AUTO) 0.2 % (0.9-2.9); HEMATOCRIT 30.6 % (36.0-47.0); HEMOGLOBIN 10.6 g/dL (12.0-16.0); LYMPHOCYTES # (AUTO) 1.7 X10^3/uL (1.3-2.9); LYMPHOCYTES % (AUTO) 23.1 % (21.0-51.0); MEAN CORPUSCULAR HEMOGLOBIN 29.1 pg (27.0-34.0); MEAN CORPUSCULAR HGB CONC 34.7 g/dL (33.0-35.0); MEAN CORPUSCULAR VOLUME 83.8 fL (80.0-100.0); MEAN PLATELET VOLUME 8.3 fL (7.4-11.0); MONOCYTES # (AUTO) 0.6 x10^3/uL (0.3-0.8); MONOCYTES % (AUTO) 8.4 % (0.0-13.0); NEUTROPHILS % (AUTO) 67.6 % (42.0-75.0); PLATELET COUNT 160 X10^3/uL (150.0-450.0); RED BLOOD COUNT 3.65 X10^6/uL (3.5-5.4); WHITE BLOOD COUNT 7.5 X10^3/uL (3.6-10.0)
[2020-12-08] MEDS: CARAFATE ORAL SUSP PO SCH (05:55)
--- NOTE | 2020-12-08 05:57 | RAD ---
HISTORYHypoxia bronchitisSTUDYAP [id number]/25/2021FINDINGSHeart size is stable, upper normal. Mild symmetric pulmonary hyperaeration again noted. There is slight diffuse interstitial prominence bilaterally, as before. No segmental or lobar consolidation, hilar mass or pleural effusion is demonstrated.IMPRESSIONNo change. Stable appearance of bilateral interstitial prominence, likely related to chronic peribronchial thickening/emphysema, described on prior chest CT of 02/29/2020.Electronically signed by: ADRY LORENZ (Dec 08, 2020 05:55:32)
[2020-12-08 06:06] LABS: CALCIUM 9.1 mg/dL (8.5-10.1); CARBON DIOXIDE 34.9 mmol/L (21-32); CREATININE 1.15 mg/dL (0.55-1.02)
[2020-12-08] MEDS: PULMICORT NEB TX 0.5 MG NEB SCH (08:35)
[2020-12-08] MEDS: MICRO K EXTEN CAP 10 MEQ PO SCH (09:51)
[2020-12-08] MEDS: DETROL LA 4 MG CAP EXT REL PO SCH (09:52)
[2020-12-08] MEDS: LOPRESSOR TAB 50 MG PO SCH (09:52)
[2020-12-08] MEDS: ZITHROMAX TAB 250 MG PO SCH (09:52)
[2020-12-08] MEDS: PREDNISONE TAB 20 MG PO SCH (09:52)
[2020-12-08] MEDS: ELIQUIS PO SCH (09:53)
[2020-12-08] MEDS: MIRABEGRON 25 MG PO SCH (10:33)
[2020-12-08 11:55] VITALS: BP 125/60
== END 2020-12-08 12:25 | disposition home or self-care (01) ==
LOC: MED/SURG 16:06 → ER 16:06 → MED/SURG 21:58
PROVIDERS: ADMIT Internal Medicine; ATTEND Internal Medicine
DX: R26.89 Other abnormalities of gait and mobility; I48.19 Other persistent atrial fibrillation; W18.39XA Other fall on same level, initial encounter; R06.2 Wheezing; J44.1 Chronic obstructive pulmonary disease with (acute) exacerbation; Z79.899 Other long term (current) drug therapy; Z20.822 Contact with and (suspected) exposure to COVID-19; J20.8 Acute bronchitis due to other specified organisms; N18.31 Chronic kidney disease, stage 3a; N30.01 Acute cystitis with hematuria; R53.1 Weakness; R40.4 Transient alteration of awareness; B96.1 Klebsiella pneumoniae [K. pneumoniae] as the cause of diseases classified elsewhere; E86.0 Dehydration